=== PATIENT | male | born 1950 | race Caucasian/White ===

== ENCOUNTER 2021-02-18 18:42 | Emergency (ER) | payer OTHER, MEDICARE, SELFPAY ==
[2021-02-18 18:45] VITALS: BP 110/66; PULSE 96; RESP 18; TEMP 37.4; O2SAT 95; BMI 22.1
[2021-02-18 18:47] VITALS: BP 110/66; PULSE 96; RESP 18; TEMP 37.4; O2SAT 95
--- NOTE | 2021-02-18 19:05 | RAD_ITS ---
INDICATION: Injury/Pain EXAMINATION/TECHNIQUE: X-RAY - RIGHT XR Ankle Min 3 Views COMPARISON: None. FINDINGS: Acute nondisplaced fracture of the lateral malleolus. The ankle mortise is symmetric. No blastic or lytic lesions. No degenerative changes are seen. Soft tissue swelling of the ankle. RAD/Ankle min 3 Views IMPRESSION: Acute nondisplaced fracture of the lateral malleolus (IRVIN type C). Electronically Signed: Ulices Regan MD at 19:40 EDT Tel , Service support ,
--- NOTE | 2021-02-18 19:47 | EDS_ITS ---
HPI History of Present Illness Chief Complaint: Lower Extremity Injury Informant: patient Occured/Mechanism Mechanism/Context: Yes fall Onset/Context/Timing Onset: Today Context: Sudden Onset Timing: Continuous Quality of Pain: Sharp and Dull Location: Right ankle Worsened by: Ambulation Relieved by: Nothing Associated Symptoms Associated Symptoms: Negative for Parasthesia, Weakness and Loss of Funtion Narrative Narrative: Patient presents with right ankle injury that occurred today. Patient states he twisted his right ankle and fell. Patient states he has been having increasing pain and swelling to his right ankle over the past few hours. Patient describes the pain as constant dull but sharp at times. Patient states the pain is worse with ambulation. Patient denies any paresthesias or weakness. Patient denies any head injury or loss of consciousness. Patient denies any other injuries. [facility] Medical History (Updated 02/18/21 @ 19:[address] Nathan Gabriel DO) Diabetes GERD (gastroesophageal reflux disease) Hypercholesterolemia Hypertension Home Medications albuterol sulfate [Proventil Hfa] 6.7 g IH 4X/DAY PRN 01/04/17 [History Last Taken Unknown] atorvastatin 10 mg PO QHS 01/04/17 [History Last Taken Unknown] budesonide-formoterol [Symbicort 160-4.5 Mcg Inhaler] 6 g IH BID 01/04/17 [History Last Taken Unknown] gabapentin 300 mg PO TIDCM 01/04/17 [History Last Taken Unknown] hydrocodone-acetaminophen 1 tab PO Q6H PRN PRN #16 tablet 01/04/17 [Rx Last Taken Unknown] lisinopril 5 mg PO DAILY 01/04/17 [History Last Taken Unknown] metformin 500 mg PO QHS 01/04/17 [History Last Taken Unknown] omeprazole 20 mg PO BID 01/04/17 [History Last Taken Unknown] hydrocodone-acetaminophen 1 tab PO Q6H PRN PRN 3 Days #10 tablet 02/18/21 [Rx Last Taken Unknown] Allergy/AdvReac Type Severity Reaction Status Date / Time No Known Allergies Allergy Verified 01/04/17 18:55 Surgical History (Updated 02/18/21 @ 19:[address] Nathan Gabriel DO) History of back surgery Social History Smoking Status: Former smoker ROS ROS ED Constitutional Constitutional ED: Denies chills or fever(s) Eyes Eyes: Denies blurry vision or change in vision ENT ENT ED: Denies rhinorrhea or sore throat Cardiovascular Cardiovascular: Denies chest pain or palpitations Respiratory/Chest Respiratory/Chest: Denies cough or dyspnea Gastrointestinal Gastrointestinal: Denies nausea or vomiting Genitourinary Genitourinary ED: Denies dysuria or hematuria Musculoskeletal Musculoskeletal: Denies back pain or neck pain Integumentary Denies abscess or rash Neurologic Neurologic: Denies headache(s) or weakness Allergic/Immunologic Allergic/Immunologic ED: Denies mouth swelling or urticaria EXAM Physical Exam Const Vital Signs: 02/18/21 18:45 02/18/21 18:47 Temperature 99.3 F H 99.3 F H Temperature Source Temporal Temporal Pulse Rate 96 96 Respiratory Rate 18 18 Blood Pressure 110/66 110/66 Blood Pressure Mean 80 80 Pulse Ox 95 95 Oxygen Delivery Method Room Air Room Air Positive well nourished and well developed General Appearance ED: well developed HEENT Reports moist mucous membranes Neck full ROM and supple Extremity Right Lower Extremity: ankle joint inspection (There is tenderness, edema, and ecchymosis over the lateral aspect of the right ankle. There is no deformity.), palpation (There is tenderness to palpation over the lateral malleolus.), ROM (Range of motion was slightly limited in all motions of the right ankle secondary to pain.) and neurovascular exam (Pedal pulses are equal bilateral. Capillary refill is less than 2 seconds in all digits. There are no sensory deficits noted.) Neuro oriented x3, CN's II-XII intact bilaterally, moves all extremities and no sensory deficits noted Sensorium / Orientation: alert Motor Exam: strength 5/5 throughout Psych mental status grossly normal Skin Skin Narrative: There is a superficial abrasion over the posterior aspect of the left elbow. There is no active bleeding noted. There is no bony crepitance or tenderness noted. There is no erythema or warmth noted. MDM MDM MDM Narrative Medical decision making narrative: X-rays of the right ankle were obtained. There are 3 views. On my interpretation, there is a nondisplaced fracture of the tip of the distal fibula. There is no dislocation. There is some mild soft tissue swelling. Radiologist also interpreted the x-rays and agrees. Patient was given a walking boot. Patient declined any analgesics at this time. Patient was given a prescription for [place]. Patient was instructed to ice and elevate the right ankle. Patient was instructed to follow-up with his primary care physician in 5 to 7 days. Patient understood and was agreeable with the plan. All questions were answered. Radiography Diagnostic Testing: Radiology Impression Ankle X-Ray 02/18/21 19:05 IMPRESSION: Acute nondisplaced fracture of the lateral malleolus (IRVIN type C). Electronically Signed: Ulices Regan MD at 19:40 EDT Tel , Service support , Discharge Plan Triage Chief Complaint: Lower Extremity Injury ED Provider: Nathan Gabriel Dx/Rx/DC Orders Clinical Impression: Closed fracture of right distal fibula Instructions: ED Ankle Fracture, Distal Fibula Prescriptions: New hydrocodone-acetaminophen [hydrocodone-acetaminophen] 1 TABLET tablet 1 tab PO Q6H PRN PRN (Reason: Pain) 3 Days Qty: 10 RF: 0 No Action atorvastatin 10 MG tablet 10 mg PO QHS RF: 0 gabapentin 300 MG capsule 300 mg PO TIDCM RF: 0 omeprazole 20 MG capsule 20 mg PO BID RF: 0 lisinopril 5 MG tablet 5 mg PO DAILY RF: 0 albuterol sulfate [Proventil HFA] 6.7 GM HFA aerosol inhaler 6.7 g IH 4X/DAY PRN (Reason: Sob &/Or Wheezing) RF: 0 metformin 500 MG tablet,ER rosa.retention 24 hr 500 mg PO QHS RF: 0 budesonide-formoterol [Symbicort] 6 GM HFA aerosol inhaler 6 g IH BID RF: 0 hydrocodone-acetaminophen 1 TABLET tablet 1 tab PO Q6H PRN PRN (Reason: Pain) Qty: 16 RF: 0 [facility] - 3-5 Days Disposition Disposition: Home, self care
== END 2021-02-18 20:02 | disposition home or self-care (01) ==
PROVIDERS: Emergency Provider Emergency Medicine
DX: S82.831A Other fracture of upper and lower end of right fibula, initial encounter for closed fracture (principal); X58.XXXA Exposure to other specified factors, initial encounter; Z87.891 Personal history of nicotine dependence
CPT/HCPCS: 73610; 99283

== ENCOUNTER 2021-04-10 14:23 | Inpatient (IN) | payer OTHER, MEDICARE, SELFPAY ==
[2021-04-10] VITALS (17 sets, daily range): BP systolic 118–146; BP diastolic 61–86; PULSE 93–129; RESP 18–40; TEMP 36.6–38.8; O2SAT 87–96; BMI 22.5; BMI 21.4
--- NOTE | 2021-04-10 14:50 | EKG12_ITS ---
Test Reason : Blood Pressure : / mmHG Vent. Rate : 101 BPM Atrial Rate : 101 BPM P-R Int : 128 ms QRS Dur : 084 ms QT Int : 334 ms P-R-T Axes : 063 048 044 degrees QTc Int : 433 ms Sinus tachycardia Otherwise normal ECG Confirmed by LILLY VERA, TERI ([id number]), editor greeting card ELISHA MARIE ([id number]) on 04/14/2021 9:30:43 AM Referred By: DWAYNE Confirmed By:TERI CARR MD
--- NOTE | 2021-04-10 14:57 | RAD_ITS ---
STUDY: X-RAY CHEST REASON FOR EXAM: Male, 70 years old. DIZZINESS X3 DAYS ALSO HAVING A FEVER, INCREASED SOB, AND COUGH. PULSE OX 77% ON ROOM AIR ON EMS ARRIVAL. TECHNIQUE: AP COMPARISON: None. FINDINGS: EKG leads project over the chest. Airspace consolidation in the right lung base. There is no demonstrated pleural abnormality. Normal size heart. Normal mediastinum and dov. Normal visualized pulmonary arteries. There is atherosclerotic calcification of the aortic arch with tortuosity. No acute bony process. There is no demonstrated abnormality of the visualized soft tissue structures of the upper abdomen. RAD/Chest 1 View (Portable) IMPRESSION: Right lower lobe pneumonia. Electronically Signed: Jamal Martinez MD ([place]) at 15:20 EDT , Service support ,
[2021-04-10 15:02] LABS: Absolute Lymphocyte Count 0.23 X10^3/uL (0.83-4.51); Absolute Neutrophil Count 9.8 X10^3/uL (2.0-7.7); Basophil# 0.02 X10^3/uL; Basophil% 0.2 % (0-1); Hematocrit 37.7 % (40-54); Hemoglobin 12.3 g/dL (13.0-16.5); Lymphocyte # 0.23 X10^3/ul (0.83-4.51); Lymphocyte % 2.1 % (19-41); Mean Corp Hgb Conc 32.6 g/dL (32-36); Mean Platelet Vol. 11.6 fl (6.2-12.0); Monocyte# 0.56 X10^3/uL; Monocyte% 5.2 % (0-10); NRBC Flagged by Analyzer 0 % (0-5); Neutrophil # 9.83 X10^3/uL (2.7-7.7); Neutrophil % 91.8 % (47-70); POSITIVE DIFFERENTIAL YES; Platelet Count 213 K/mm3 (150-450); RBC Distribution Width CV 14.6 % (11.6-14.6); RBC Distribution Width SD 49.6 fl (35.1-43.9); White Blood Count 10.7 K/mm3 (4.4-11.0)
[2021-04-10 15:03] LABS: Differential Indicated SCAN CRITERIA MET
[2021-04-10 15:08] LABS: International Normalized Ratio 1.4; Prothrombin Time (Protime)PT. 16.9 SECONDS (11.7-14.9)
[2021-04-10 15:09] LABS: Partial Thromboplast Time 36.6 Seconds (24.1-36.2)
--- NOTE | 2021-04-10 15:13 | ED.RN ---
pt refused PRC covid test. Dr melendez
[2021-04-10 15:14] LABS: ALB/GLOB Ratio 0.7 RATIO (0.9-2.4); AST(SGOT) 41 U/L (15-37); Alanine Aminotransfer ALT/SGPT 21 U/L (16-61); Alkaline Phosphatase 74 U/L (45-117); Anion Gap 9 (5-15); BUN 33 mg/dL (7-18); Calcium,Total 8.6 mg/dL (8.5-10.1); Chloride 95 mmol/L (98-107); Creatinine, Serum 1.32 mg/dL (0.70-1.30); EST Glomerular Filtration Rate 57 mL/min (>60); Est Glom Filt Rate - Afr Amer 69 mL/min (>60); Estimated Creatinine Clearance 50.28 ml/min; Globulin 4.4 g/dL (2.2-4.2); Glucose 256 mg/dL (74-106); Potassium 4.6 mmol/L (3.5-5.1); Protein, Total 7.4 g/dL (6.4-8.2); Sodium Level 127 mmol/L (136-145)
[2021-04-10 15:21] LABS: Differential Comment SCANNED; Platelet Estimate ADEQUATE (ADEQ)
[2021-04-10 15:24] LABS: Lactic Acid 1.5 mmol/L (0.4-1.9)
--- NOTE | 2021-04-10 15:32 | EX.ED.DYSGE1 ---
HPI History of Present Illness Chief Complaint: Fever Narrative Narrative: 70-year-old male with history of COPD, diabetes, GERD, hypertension, hyperlipidemia presenting with shortness of breath and cough. Patient states he has had this for about 3 to 4 days. He states he was unsure if he had a fever at home and did not check. Patient complains of myalgias and chills. Patient also states he lost his sense of taste. His smell is normal. Patient denies chest pain. He feels like his cough is chronic. He has no significant new short of breath that he states. Patient states he is a longtime smoker and quit for years however he took up smoking on Father's Day of 2019 after his . He states he smoked a pack a day. [facility] Medical History Diabetes GERD (gastroesophageal reflux disease) Hypercholesterolemia Hypertension Home Medications albuterol sulfate [Proventil Hfa] 6.7 g IH 4X/DAY PRN 01/04/17 [History Last Taken Unknown] atorvastatin 10 mg PO QHS 01/04/17 [History Last Taken Unknown] budesonide-formoterol [Symbicort 160-4.5 Mcg Inhaler] 6 g IH BID 01/04/17 [History Last Taken Unknown] gabapentin 300 mg PO TIDCM 01/04/17 [History Last Taken Unknown] hydrocodone-acetaminophen 1 tab PO Q6H PRN PRN #16 tablet 01/04/17 [Rx Last Taken Unknown] lisinopril 5 mg PO DAILY 01/04/17 [History Last Taken Unknown] metformin 500 mg PO QHS 01/04/17 [History Last Taken Unknown] omeprazole 20 mg PO BID 01/04/17 [History Last Taken Unknown] hydrocodone-acetaminophen 1 tab PO Q6H PRN PRN 3 Days #10 tablet 02/18/21 [Rx Last Taken Unknown] Allergy/AdvReac Type Severity Reaction Status Date / Time No Known Allergies Allergy Verified 01/04/17 18:55 Surgical History History of back surgery Social History Smoking Status: Current every day smoker tobacco type: cigarettes ROS ROS ED Constitutional Constitutional ED: Reports chills and fever(s); Denies sweats Eyes Eyes: Reports blurry vision and diplopia ENT ENT ED: Reports rhinorrhea, sore throat and other Details: Loss of sense of taste Cardiovascular Cardiovascular: Denies chest pain Respiratory/Chest Respiratory/Chest: Reports cough, dyspnea and dyspnea on exertion Gastrointestinal Gastrointestinal: Denies abdominal pain, diarrhea, nausea or vomiting Genitourinary Genitourinary ED: Denies dysuria Musculoskeletal Musculoskeletal: Reports myalgias; Denies arthralgias, back pain or neck pain Integumentary Denies abscess or rash Neurologic Neurologic: Reports headache(s); Denies paresthesias Psychiatric Psychiatric: Reports anxiety and depression EXAM Physical Exam Const Vital Signs: 04/10/21 14:24 04/10/21 14:29 04/10/21 14:33 Temperature 101.9 F H 101.9 F H Temperature Source Oral Oral Pulse Rate 109 H 109 H Respiratory Rate 24 H 28 H Respiratory Effort Short of Breath Respiratory Pattern Tachypnea Blood Pressure 145/68 H 145/68 H Blood Pressure Mean 93 93 Pulse Ox 89 93 Oxygen Delivery Method Room Air Nasal Cannula Oxygen Flow Rate (L/min) 3 04/10/21 14:50 04/10/21 15:29 04/10/21 15:54 Temperature 98 F 98 F Temperature Source Temporal Temporal Pulse Rate 93 96 93 Respiratory Rate 20 H 20 H 18 Respiratory Effort Respiratory Pattern Blood Pressure 146/74 H 129/68 H Blood Pressure Mean 98 88 Pulse Ox 95 95 94 Oxygen Delivery Method Nasal Cannula Nasal Cannula Nasal Cannula Oxygen Flow Rate (L/min) 1.5 2 04/10/21 15:57 04/10/21 17:00 04/10/21 17:02 Temperature 99 F 99 F Temperature Source Temporal Temporal Pulse Rate 94 102 H 102 H Respiratory Rate 22 H 20 H 20 H Respiratory Effort Respiratory Pattern Blood Pressure 134/74 H 123/86 H 139/61 H Blood Pressure Mean 94 98 87 Pulse Ox 96 95 95 Oxygen Delivery Method Nasal Cannula Nasal Cannula Nasal Cannula Oxygen Flow Rate (L/min) 04/10/21 18:14 04/10/21 18:16 04/10/21 18:29 Temperature 99 F 99 F 98.2 F Temperature Source Temporal Temporal Oral Pulse Rate 95 Respiratory Rate 20 H Respiratory Effort Respiratory Pattern Blood Pressure 144/85 H Blood Pressure Mean 104 Pulse Ox 94 Oxygen Delivery Method Nasal Cannula Oxygen Flow Rate (L/min) 08/07/21 19:00 Temperature 98.2 F Temperature Source Oral Pulse Rate 95 Respiratory Rate 20 H Respiratory Effort Respiratory Pattern Blood Pressure 118/71 Blood Pressure Mean 86 Pulse Ox 94 Oxygen Delivery Method Nasal Cannula Oxygen Flow Rate (L/min) 2 Positive well nourished General Appearance ED: NAD PETROS Reports dry mucous membranes Negative for trauma Mouth ED: Yes dry mucous membranes Mouth: dry mucous membranes Eyes PERRL and EOMs intact bilaterally General Eye ED: Negative for pale conjunctiva or scleral icterus Chest Wall palpation of chest normal Resp Auscultation: wheezes expiratory wheezes and scattered wheezes and diminished lung sounds bilateral GI normal to inspection, nondistended, normoactive bowel sounds Extremity normal to inspection General Extremety ED: Negative for edema or tenderness General Extremity: Negative for edema Neuro oriented x3, CN's II-XII intact bilaterally and no sensory deficits noted Sensorium / Orientation: alert Motor Exam: strength 5/5 throughout Psych mental status grossly normal Skin no rashes or lesions noted and no wounds MDM MDM MDM Narrative Medical decision making narrative: 70-year-old male with history of COPD and current smoker of 1 pack of cigarettes per day presenting with hypoxia as he is found by EMS to be in the 70s on room air. Patient states that he does not usually wear oxygen at home. He does state that he has had a cough, myalgias, chills, loss of taste for about 4 days. He denies known sick contacts. Patient does not endorse a fever from home but does arrive febrile at 101.9. Given that patient is tachypneic and tachycardic as well as hypoxic sepsis work-up was initiated. Patient does refuse COVID-19 testing and has not had COVID-19 that he knows of nor has he had Covid vaccines. He states he just does not want this. His EKG performed on arrival shows a sinus rhythm with a ventricular to 101 bpm without signs of ST elevation or depression on my interpretation. Chest x-ray on my interpretation shows a right lower lobe infiltrate and the radiologist does agree. Patient's CBC shows a white blood cell count of 10.7, hemoglobin 12.3, -37.7, platelets 213. Patient is lymphopenic. PT slightly long 69.9,inr1.4, APPT 36.6. CMP shows that his AST is slightly elevated as well as his globulin however his other LFTs are within normal limits. Creatinine is slightly elevated 1.32 from a baseline of 1.16. Sodium is 127, potassium is normal. Lactic acid 1.5. Patient currently requiring 2 L of oxygen via nasal cannula to maintain sats in the low 90s. Patient refuses Covid testing even after I explained to him that it would help us determine whether we can get him home on oxygen or whether we needed to admit him for oxygen and further treatment of COPD exacerbation. Patient states he is adamant about not being tested for COVID-19. After discussion with the patient again he was amenable to testing for Covid. His Covid swab was negative. Troponin was negative. Patient had an elevated D-dimer and did have a CTA performed which showed no evidence of PE or dissection. It does show right lower lobe pneumonia. Given that the patient is hypoxic I cannot send him home without oxygen. Patient will need to be admitted for IV antibiotics and O2 set up for home. Patient is amenable to this. Impression: 1. Right lower lobe pneumonia 2. Hypoxic respiratory failure Lab Data Labs: Laboratory Results - last 24 hr 04/10/21 04/10/21 04/10/21 14:03 14:03 14:03 WBC 10.7 RBC 4.10 L Hgb 12.3 L Hct 37.7 L MCV 92.0 MCH 30.0 MCHC 32.6 RDW Std Deviation 49.6 H RDW Coeff of [place] 14.6 Plt Count 213 MPV 11.6 Immature Gran % (Auto) 0.700 Neut % (Auto) 91.8 H Lymph % (Auto) 2.1 L [place] % (Auto) 5.2 Eos % (Auto) 0.0 Baso % (Auto) 0.2 Absolute Neuts (auto) 9.8 H Absolute Lymphs (auto) 0.23 L Nucleated RBC % 0 Differential Comment SCANNED Platelet Estimate ADEQUATE PT 16.9 H INR 1.4 APTT 36.6 H D-Dimer Quant (PE/DVT) Sodium 127 L Potassium 4.6 Chloride 95 L Carbon Dioxide 23.0 Anion Gap 9 BUN 33 H Creatinine 1.32 H Estim Creat Clear Calc 50.28 Est GFR (MDRD) Af Amer 69 Est GFR (MDRD) Non-Af 57 L BUN/Creatinine Ratio 25.0 H Glucose 256 H Lactic Acid Calcium 8.6 Total Bilirubin 1.00 AST 41 H ALT 21 Alkaline Phosphatase 74 Troponin I High Sens Total Protein 7.4 Albumin 3.0 L Globulin 4.4 H Albumin/Globulin Ratio 0.7 L COVID-19 (ANJUM) 04/10/21 04/10/21 04/10/21 14:03 14:30 16:30 WBC RBC Hgb Hct MCV MCH MCHC RDW Std Deviation RDW Coeff of [place] Plt Count MPV Immature Gran % (Auto) Neut % (Auto) Lymph % (Auto) [place] % (Auto) Eos % (Auto) Baso % (Auto) Absolute Neuts (auto) Absolute Lymphs (auto) Nucleated RBC % Differential Comment Platelet Estimate PT INR APTT D-Dimer Quant (PE/DVT) Sodium Potassium Chloride Carbon Dioxide Anion Gap BUN Creatinine Estim Creat Clear Calc Est GFR (MDRD) Af Amer Est GFR (MDRD) Non-Af BUN/Creatinine Ratio Glucose Lactic Acid 1.5 Calcium Total Bilirubin AST ALT Alkaline Phosphatase Troponin I High Sens 39.5 Total Protein Albumin Globulin Albumin/Globulin Ratio COVID-19 (ANJUM) Negative 04/10/21 16:45 WBC RBC Hgb Hct MCV MCH MCHC RDW Std Deviation RDW Coeff of [place] Plt Count MPV Immature Gran % (Auto) Neut % (Auto) Lymph % (Auto) [place] % (Auto) Eos % (Auto) Baso % (Auto) Absolute Neuts (auto) Absolute Lymphs (auto) Nucleated RBC % Differential Comment Platelet Estimate PT INR APTT D-Dimer Quant (PE/DVT) 2.36 H* Sodium Potassium Chloride Carbon Dioxide Anion Gap BUN Creatinine Estim Creat Clear Calc Est GFR (MDRD) Af Amer Est GFR (MDRD) Non-Af BUN/Creatinine Ratio Glucose Lactic Acid Calcium Total Bilirubin AST ALT Alkaline Phosphatase Troponin I High Sens Total Protein Albumin Globulin Albumin/Globulin Ratio COVID-19 (NAJUM) Radiography Diagnostic Testing: Radiology Impression Chest X-Ray 04/10/21 14:57 IMPRESSION: Right lower lobe pneumonia. Electronically Signed: Jamal Martinez MD ([place]) at 15:20 EDT , Service support , Chest CTA 04/10/21 17:20 IMPRESSION: 1. No evidence of pulmonary embolus. 2. Right lower lobe consolidation compatible with pneumonia. Individualized dose optimization techniques were used for this CT. at 1824 Reported and signed by: Antoine Yin MD Electronically Signed: Antoine Yin MD at 18:23 EDT Tel , Service support , Discharge Plan Disposition Disposition: Acute Care Hospital [facility] Discharge Date/Time: 04/10/21 19:35
[2021-04-10] MEDS: dexAMETHasone 10 MG/ML Vial 6 MG IV (15:50)
[2021-04-10] MEDS: Ipratropium/Albuterol Sulfate 3 ML AMPUL.NEB INHALATION (15:53)
[2021-04-10] MEDS: Albuterol 2.5 MG/3 ML VIAL.NEB. INHALATION ×2 (15:57→21:19)
[2021-04-10 17:18] LABS: D-Dimer Quantitative (DVT/PE) 2.36 FEU/ug/m (0.27-0.49)
--- NOTE | 2021-04-10 17:20 | CT_ITS ---
EXAM: CT ANGIOGRAPHY CHEST WITHOUT AND WITH INTRAVENOUS CONTRAST : 1950 CLINICAL INDICATION: hypoxia TECHNIQUE: Helically acquired angiography images were obtained of the chest without and with intravenous contrast. This CT exam was performed using one or more of the following dose reduction techniques: automated exposure control, adjustment of the mA and/or kV according to patient size, and/or use of iterative reconstruction technique. This report was created using [employer] report generation technology. MIP reconstructed images were created and reviewed. CONTRAST: IV 100mL [id number] COMPARISON: None. FINDINGS: PULMONARY ARTERIES: Unremarkable. Normal in caliber. No evidence of pulmonary embolism. AORTA: Unremarkable. Normal in caliber. No evidence of dissection. GREAT VESSELS OF AORTIC ARCH: Unremarkable. Normal in caliber. No evidence of dissection. LUNGS AND PLEURAL SPACES: There is consolidation in the right lower lobe compatible with pneumonia. No mass. No pleural effusion or thickening. HEART: Unremarkable. Heart size is normal. No pericardial effusion. No signs of right heart strain. MEDIASTINUM: Unremarkable. No mediastinal or hilar adenopathy. Esophagus is unremarkable. No hiatal hernia. THYROID: Unremarkable. No thyroid lesions. BONES/JOINTS: Unremarkable. No suspicious lytic or blastic abnormality. LYMPH NODES: There is soft tissue in the right hilum compatible with adenopathy. CT/CTA Chest W/WO Contrast IMPRESSION: 1. No evidence of pulmonary embolus. 2. Right lower lobe consolidation compatible with pneumonia. Individualized dose optimization techniques were used for this CT. at 1824 Reported and signed by: Antoine Yin MD Electronically Signed: Antoine Yin MD at 18:23 EDT Tel , Service support ,
[2021-04-10 17:53] LABS: Probe Check PASS; Specimen Processing Control PASS
--- NOTE | 2021-04-10 18:30 | ED.RN ---
pt is aware that urine is needed.
--- NOTE | 2021-04-10 18:49 | NURSING ---
[facility] AND [facility] SAID ACCEPTANCE IS CASE BY CASE AND ASKED ME TO FAX OVER OUR NOTES. I DID TO [phone] AND WAITING TO HEAR BACK.
[2021-04-10] MEDS: Ceftriaxone 1 GM/50 ML BAG IV (18:59)
--- NOTE | 2021-04-10 19:32 | CM.ED ---
Addendum entered by Adriana Spencer 04/10/21 20:46: SW went to [facility] to speak to patient. SW asked about patient's dog as he had talked to this scientific technical writer about the dog to this scientific technical writer and RN. Patient said that the dog will be ok. SW expressed concerns about the dog and patient again voiced that dog is ok. SW asked if there was anyone that this scientific technical writer could call to ensure that the dog was safe and he said no.. I don't want to cause any more conflict. SW called RN Kimmy and asked that she attempt to talk to patient about the dog and attempt to see if patient will provide name of someone who could help with dog or the status of the dog. RN agreed. Plan: To be determined. Original Note: CAIN Note: Referral Source: mergers and acquisitions associate Reason: Patient's 7 month ago and is grieving. Patient declined covid test. Reports he wants to go home with his dog SW met with patient. Patient talked extensively about his and how she as a result of a fall and broken neck. Patient reports he doesn't understand why his of 30+ years was transferred to [facility] for treatment. Patient said that then went to [facility] and he attempted to visit her but due to COVID it was limited. Patient got tearful when discussing his and her passing. SW provided emotional support. CAIN advised patient to consider talking to [facility] unit control worker for support and SW asked if he needed their contact number and he declined but said that he knew where the offices were in [facility]. SW encouraged patient to obtain covid test and he agreed. Patient is very concerned about his dog. Plan: To be determined. Emotional support provided Adriana SEPULVEDA
[2021-04-10 19:34] LABS: Troponin-I HS 39.5 pg/mL (3.0-78.5)
--- NOTE | 2021-04-10 19:35 | PCM.HP.STD ---
HPI - General General Date of Admission: 04/10/21 HPI Narrative YULIYA GALARZA, is a 70 M with a history of COPD who presents feeling unwell, fever and a cough. Denies any shortness of breath or chest pain per se. Denies any wheezing. Appetite and oral intake has been poor. 15 pound weight loss per patient unable to tell me over how long. Denies any sick contacts or any recent travel. [facility] Medical History Diabetes GERD (gastroesophageal reflux disease) Hypercholesterolemia Hypertension Home Medications albuterol sulfate [Proventil Hfa] 6.7 g IH 4X/DAY PRN 01/04/17 [History Last Taken Unknown] atorvastatin 10 mg PO QHS 01/04/17 [History Last Taken Unknown] budesonide-formoterol [Symbicort 160-4.5 Mcg Inhaler] 6 g IH BID 01/04/17 [History Last Taken Unknown] gabapentin 300 mg PO TIDCM 01/04/17 [History Last Taken Unknown] hydrocodone-acetaminophen 1 tab PO Q6H PRN PRN #16 tablet 01/04/17 [Rx Last Taken Unknown] lisinopril 5 mg PO DAILY 01/04/17 [History Last Taken Unknown] metformin 500 mg PO QHS 01/04/17 [History Last Taken Unknown] omeprazole 20 mg PO BID 01/04/17 [History Last Taken Unknown] hydrocodone-acetaminophen 1 tab PO Q6H PRN PRN 3 Days #10 tablet 02/18/21 [Rx Last Taken Unknown] Allergy/AdvReac Type Severity Reaction Status Date / Time No Known Allergies Allergy Verified 01/04/17 18:55 Surgical History History of back surgery Social History Smoking Status: Current every day smoker tobacco type: cigarettes ROS ROS Narrative Denies any abdominal pain nausea vomiting. Denies any lower extremity swelling. All other systems reviewed and essentially negative. Vital Signs Vital Signs Vital Signs: 04/10/21 14:24 04/10/21 14:29 04/10/21 14:33 Temperature 38.8 C H 38.8 C H Temperature Source Oral Oral Pulse Rate 109 H 109 H Respiratory Rate 24 H 28 H Respiratory Effort Short of Breath Respiratory Pattern Tachypnea Blood Pressure 145/68 H 145/68 H Blood Pressure Mean 93 93 Pulse Ox 89 93 Oxygen Delivery Method Room Air Nasal Cannula Oxygen Flow Rate (L/min) 3 04/10/21 14:50 04/10/21 15:29 04/10/21 15:54 Temperature 36.6 C 36.6 C Temperature Source Temporal Temporal Pulse Rate 93 96 93 Respiratory Rate 20 H 20 H 18 Respiratory Effort Respiratory Pattern Blood Pressure 146/74 H 129/68 H Blood Pressure Mean 98 88 Pulse Ox 95 95 94 Oxygen Delivery Method Nasal Cannula Nasal Cannula Nasal Cannula Oxygen Flow Rate (L/min) 1.5 2 04/10/21 15:57 04/10/21 17:00 04/10/21 17:02 Temperature 37.2 C 37.2 C Temperature Source Temporal Temporal Pulse Rate 94 102 H 102 H Respiratory Rate 22 H 20 H 20 H Respiratory Effort Respiratory Pattern Blood Pressure 134/74 H 123/86 H 139/61 H Blood Pressure Mean 94 98 87 Pulse Ox 96 95 95 Oxygen Delivery Method Nasal Cannula Nasal Cannula Nasal Cannula Oxygen Flow Rate (L/min) 04/10/21 18:14 04/10/21 18:16 04/10/21 18:29 Temperature 37.2 C 37.2 C 36.8 C Temperature Source Temporal Temporal Oral Pulse Rate 95 Respiratory Rate 20 H Respiratory Effort Respiratory Pattern Blood Pressure 144/85 H Blood Pressure Mean 104 Pulse Ox 94 Oxygen Delivery Method Nasal Cannula Oxygen Flow Rate (L/min) 04/10/21 19:00 Temperature 36.8 C Temperature Source Oral Pulse Rate 95 Respiratory Rate 20 H Respiratory Effort Respiratory Pattern Blood Pressure 118/71 Blood Pressure Mean 86 Pulse Ox 94 Oxygen Delivery Method Nasal Cannula Oxygen Flow Rate (L/min) 2 Weight Weight: 67.3 kg Body Mass Index (BMI) 22.5 Physical Exam Narrative General. Middle-aged man, appears older than stated age, chronically ill-appearing, slightly cachectic. Mildly ill-appearing. HEENT. Oral mucosa slightly dry. Mucosae are pink. Neck. Neck is supple. Heart first and second heart sounds heard no murmurs. Lungs. Coarse crackles and harsh breath sounds and transmitted sounds in the right lung base. Abdomen. Flat/scaphoid. Nontender. No organomegaly. No palpable masses. Extremities. No pedal edema. 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 Conscious and alert. Oriented x3. Cranial nerves II through XII grossly intact. Gait not tested. All other organ systems examined essentially negative. Results Lab / Micro Data Result Diagrams: 04/10/21 14:03 04/10/21 14:03 Labs: Laboratory Results - last 24 hr 04/10/21 14:03: WBC 10.7, RBC 4.10 L, Hgb 12.3 L, Hct 37.7 L, MCV 92.0, MCH 30.0, MCHC 32.6, RDW Std Deviation 49.6 H, RDW Coeff of [place] 14.6, Plt Count 213, MPV 11.6, Immature Gran % (Auto) 0.700, Neut % (Auto) 91.8 H, Lymph % (Auto) 2.1 L, [place] % (Auto) 5.2, Eos % (Auto) 0.0, Baso % (Auto) 0.2, Absolute Neuts (auto) 9.8 H, Absolute Lymphs (auto) 0.23 L, Nucleated RBC % 0, Differential Comment SCANNED, Platelet Estimate ADEQUATE 04/10/21 14:03: PT 16.9 H, INR 1.4, APTT 36.6 H 04/10/21 14:03: Sodium 127 L, Potassium 4.6, Chloride 95 L, Carbon Dioxide 23.0, Anion Gap 9, BUN 33 H, Creatinine 1.32 H, Estim Creat Clear Calc 50.28, Est GFR (MDRD) Af Amer 69, Est GFR (MDRD) Non-Af 57 L, BUN/Creatinine Ratio 25.0 H, Glucose 256 H, Calcium 8.6, Total Bilirubin 1.00, AST 41 H, ALT 21, Alkaline Phosphatase 74, Total Protein 7.4, Albumin 3.0 L, Globulin 4.4 H, Albumin/Globulin Ratio 0.7 L 04/10/21 14:03: Troponin I High Sens 39.5 04/10/21 14:30: Lactic Acid 1.5 04/10/21 16:30: COVID-19 (ANJUM) Negative 04/10/21 16:45: D-Dimer Quant (PE/DVT) 2.36 H* Radiology Impression Chest X-Ray 04/10/21 14:57 IMPRESSION: Right lower lobe pneumonia. Electronically Signed: Jamal Martinez MD ([place]) at 15:20 EDT , Service support , Chest CTA 04/10/21 17:20 IMPRESSION: 1. No evidence of pulmonary embolus. 2. Right lower lobe consolidation compatible with pneumonia. Individualized dose optimization techniques were used for this CT. at 1824 Reported and signed by: Antoine Yin MD Electronically Signed: Antoine Yin MD at 18:23 EDT Tel , Service support , Assessment & Plan Assessment/Plan (1) Community acquired bacterial pneumonia: PLAN: Continue on empiric IV antibiotics. Supportive care. (2) Acute respiratory failure with hypoxia: PLAN: Secondary to #1 above. Supplemental oxygen as needed. (3) COPD (chronic obstructive pulmonary disease): PLAN: Stable and not in exacerbation. Continue ICS and LABA. DuoNebs as needed. Charges/Coding Visit Charges Inpatient E&M: 05336 Init Hosp L3
[2021-04-10 20:53] LABS: Bacteria 0 SEEN /hpf (None Seen); Mucous, Urine 0 SEEN /hpf (<or=2+); White Blood Cells 0 SEEN /hpf (0-5)
[2021-04-10] MEDS: Pantoprazole Sodium 20 MG Tablet PO (20:56)
[2021-04-10] MEDS: guaiFENesin 600 MG Tablet PO (20:56)
[2021-04-10] MEDS: Atorvastatin Calcium 10 MG Tablet PO (20:56)
[2021-04-10] MEDS: Glucerna Shake 120 ML LIQUID PO (20:58)
[2021-04-10] MEDS: Insulin Lispro 100 UNIT/ML INSULN.PEN SC (20:58)
[2021-04-10 21:08] LABS: Color, Urine Yellow (Yellow); Glucose, Dipstick 1000 mg/dl (Normal); Ketone-Dipstick 50 mg/dl (Negative); Leukocyte Esterase-Dipstick Negative /ul (Negative); Nitrite-Dipstick Negative (Negative); Occult Blood-Urine 150 /ul (Negative); Protein-Dipstick 100 mg/dl (Negative); Specific Gravity, Urine 1.015 (1.002-1.030); Urine Bilirubin Dipstick Negative (Negative); Urine Clarity Clear (Clear); Urine Urobilinogen Normal (Normal)
[2021-04-10 21:18] LABS: Osmolality, Urine 699 mOsm/KG
[2021-04-10] MEDS: Budesonide Respules 0.5 MG/2 ML AMPUL.NEB. INHALATION (21:19)
[2021-04-10] MEDS: levoFLOXacin IV 750 MG/150 ML BAG 100 MG IV (21:40)
[2021-04-10 21:46] LABS: Fine Granular Cast- Urine 0-5 SEEN /lpf (0-5); Hyaline Cast 0-5 SEEN /lpf (0-5)
[2021-04-10 21:49] LABS: Squamous Epithelial Cells - UA 0-5 SEEN /hpf (0-5)
[2021-04-10 21:51] LABS: Red Blood Cells-Urine 0-5 SEEN /hpf (0-5)
[2021-04-11] VITALS (21 sets, daily range): BP systolic 107–143; BP diastolic 49–67; PULSE 80–121; RESP 18–40; TEMP 36.9–39.5; O2SAT 92–97
[2021-04-11 00:10] LABS: Bedside Glucose 391 mg/dL (70-110)
[2021-04-11 00:25] LABS: Allen Test Positive; Base Excess -6 mmol/L (-2 to +2); Bicarbonate 17.5 mmol/L (22-26); Blood Gas Specimen Type ART; O2 Delivery Device Cannula; PO2 60 mmHG (75-100); SITE R Radial; SO2 93 % (95-99); Total Carbon Dioxide 18 mmol/L; pCO2 22.3 mmHg (35-45)
--- NOTE | 2021-04-11 00:26 | RAD_ITS ---
STUDY: X-RAY CHEST REASON FOR EXAM: Male, 70 years old. Increasing shortness of breath. TECHNIQUE: Single AP portable view of the chest. COMPARISON: April 10, 2021. FINDINGS: Increasing right mid and lower lung opacity. Left basilar opacity. No effusions. No pneumothorax. Normal size heart. Normal mediastinum and dov. Normal visualized pulmonary arteries. Atherosclerotic calcification of the aortic arch. Normal visualized thoracic spine. Normal visualized ribs, clavicles, and shoulders. There is no demonstrated abnormality of the visualized soft tissue structures of the upper abdomen. RAD/Chest 1 View (Portable) IMPRESSION: Bibasilar pneumonia worse since the prior study. Electronically Signed: Praveen Joiner MD at 2:33 EDT , Service support ,
[2021-04-11] MEDS: Ipratropium/Albuterol Sulfate 3 ML AMPUL.NEB INHALATION ×5 (00:42→19:41)
[2021-04-11] MEDS: 0.9% Normal Saline 1,000 ML 100 ML IV (00:50)
[2021-04-11 00:53] LABS: BNP,B-Type NATRIURETIC PEPTIDE 91.9 pg/mL (0-100)
[2021-04-11] MEDS: Acetaminophen 325 MG Tablet 650 MG PO ×2 (01:00→10:43)
[2021-04-11] MEDS: 0.9% Saline Lock 10 ML Syringe IV (01:18)
[2021-04-11 02:10] LABS: Urine Sodium < 5 mmol/L (Not Establ.)
[2021-04-11 05:45] LABS: Absolute Lymphocyte Count 0.21 X10^3/uL (0.83-4.51); Absolute Neutrophil Count 10.2 X10^3/uL (2.0-7.7); Basophil# 0.01 X10^3/uL; Basophil% 0.1 % (0-1); Hematocrit 34.8 % (40-54); Hemoglobin 11.5 g/dL (13.0-16.5); Lymphocyte # 0.21 X10^3/ul (0.83-4.51); Lymphocyte % 1.9 % (19-41); Mean Corpuscular Hgb 29.9 pg (27.0-32.0); Mean Corpuscular Volume 90.4 fL (80-94); Mean Platelet Vol. 11.4 fl (6.2-12.0); Monocyte# 0.41 X10^3/uL; Monocyte% 3.8 % (0-10); NRBC Flagged by Analyzer 0 % (0-5); Neutrophil # 10.23 X10^3/uL (2.7-7.7); Neutrophil % 93.6 % (47-70); POSITIVE DIFFERENTIAL YES; POSITIVE MORPHOLOGY YES; Platelet Count 203 K/mm3 (150-450); RBC Distribution Width CV 14.6 % (11.6-14.6); RBC Distribution Width SD 48.5 fl (35.1-43.9); Red Blood Count 3.85 M/mm3 (4.6-6.2); White Blood Count 10.9 K/mm3 (4.4-11.0)
[2021-04-11 06:04] LABS: Differential Indicated SCAN CRITERIA MET
[2021-04-11 06:09] LABS: ALB/GLOB Ratio 0.6 RATIO (0.9-2.4); AST(SGOT) 43 U/L (15-37); Alanine Aminotransfer ALT/SGPT 22 U/L (16-61); Albumin, Serum 2.5 g/dL (3.2-5.0); Alkaline Phosphatase 61 U/L (45-117); Anion Gap 7 (5-15); BUN 24 mg/dL (7-18); BUN/Creat Ratio 21.2 RATIO (10-20); Calcium,Total 7.9 mg/dL (8.5-10.1); Chloride 97 mmol/L (98-107); Creatinine, Serum 1.13 mg/dL (0.70-1.30); EST Glomerular Filtration Rate 68 mL/min (>60); Est Glom Filt Rate - Afr Amer 83 mL/min (>60); Estimated Creatinine Clearance 54.37 ml/min; Globulin 3.9 g/dL (2.2-4.2); Glucose 250 mg/dL (74-106); Potassium 4.1 mmol/L (3.5-5.1); Protein, Total 6.4 g/dL (6.4-8.2); Sodium Level 127 mmol/L (136-145)
[2021-04-11] MEDS: Insulin Lispro 100 UNIT/ML INSULN.PEN SC ×4 (06:32→21:45)
[2021-04-11 06:41] LABS: Bedside Glucose 252 mg/dL (70-110)
[2021-04-11 07:30] LABS: Osmolality, Serum 280 mOsm/KG (280-301)
[2021-04-11] MEDS: Budesonide Respules 0.5 MG/2 ML AMPUL.NEB. INHALATION (07:30)
--- NOTE | 2021-04-11 07:49 | EX.PCM.CONCC ---
Assessment & Plan Assessment/Plan (1) Acute respiratory failure with hypoxia: (2) COPD (chronic obstructive pulmonary disease): (3) Pneumonia: PLAN: RECOMMENDATIONS: 1. Transition from inhaled to IV steroids 2. Obtain urinary antigens 3. Wean oxygen as tolerated 4. Aggressive blood sugar control. Avoid Metformin 5. BiPAP rescue if necessary with AVAPS tidal volume 400 IMPRESSIONS: 1. Acute hypoxic respiratory failure secondary to right lower lobe pneumonia in the setting of probable COPD Patient with dense consolidation of the right lower lobe, hyponatremia and rapid decompensation. Clinical suspicion for Legionella pneumonia. Antigens will be sent. This would be covered by Levaquin therapy. Patient does have an extensive smoking history and there is concern for COPD. Will transition from inhaled to IV steroids. Patient is requiring significant FiO2 to maintain saturations. Cannot exclude the need for BiPAP for rescue. If patient requires BiPAP rescue, recommend transition to intensive care unit. 2. Poorly controlled diabetes mellitus Anticipate transition to IV steroids will exacerbate condition. Patient should be kept off of Metformin given recent contrast and concern for lactic acidosis. Cannot exclude the need for basal insulin requirements. Patient is currently on sliding scale. 3. Unexplained weight loss/advanced age/poor insight Complicates care, management, recovery and prognosis.Okay to continue the majority of baseline medications. We will have to be careful with opiates in the setting of respiratory failure, but ABG shows adequate ventilation at this time. HPI Consult Data Date of Consult: 04/11/21 HPI Narrative HPI Narrative: YULIYA GALARZA is a 70 M, with past medical history listed below, who presents to [facility] on 04/10/2021 secondary to fever, progressive shortness of breath and cough. Patient states that he has been getting more sick for approximately 3 to 4 days. Patient did not check his temperature at home, but did report a subjective fever, myalgias and chills. Patient does report a loss of taste, but smell is intact. Patient denies any chest pain. In the ER, patient was febrile at 101.9 ?F, tachycardic at 109 bpm and hypoxic at 89% on room air. Blood pressure was intact and patient did require 2 L nasal cannula to maintain appropriate saturations. Heart rate did improve with control of fever. Laboratory work-up showed no leukocytosis, but a hemoglobin of 12.3, INR of 1.4 and creatinine of 1.3. Glucose was elevated at 256, but lactate and troponin were within normal limits. COVID-19 was normal. D-dimer was elevated at 2.36, so a CTA of the chest was performed showing no PE, but a right lower lobe consolidation. Since admission, patient has had significant decline in hemodynamics. Patient is requiring Airvo to maintain saturations. Patient is reporting a significant cough, but no production. Patient does not report any known Covid exposures. 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 Patient believes he does have COPD and takes Symbicort at baseline. Patient has not required supplemental oxygen previously. Patient is unclear if he has any heart disease. Patient does have some issues with pain intermittently. Patient is not a very good historian, but otherwise review of systems otherwise negative from a constitutional, HEENT, respiratory, cardiovascular, GI, genitourinary, musculoskeletal, skin, neurologic, psychiatric and hematologic system unless stated above. [facility] Medical History Diabetes GERD (gastroesophageal reflux disease) Hypercholesterolemia Hypertension Home Medications albuterol sulfate [Proventil Hfa] 6.7 g IH 4X/DAY PRN 01/04/17 [History Last Taken Unknown] atorvastatin 10 mg PO QHS 01/04/17 [History Last Taken Unknown] budesonide-formoterol [Symbicort 160-4.5 Mcg Inhaler] 6 g IH BID 01/04/17 [History Last Taken Unknown] gabapentin 300 mg PO TIDCM 01/04/17 [History Last Taken Unknown] hydrocodone-acetaminophen 1 tab PO Q6H PRN PRN #16 tablet 01/04/17 [Rx Last Taken Unknown] lisinopril 5 mg PO DAILY 01/04/17 [History Last Taken Unknown] metformin 500 mg PO QHS 01/04/17 [History Last Taken Unknown] omeprazole 20 mg PO BID 01/04/17 [History Last Taken Unknown] hydrocodone-acetaminophen 1 tab PO Q6H PRN PRN 3 Days #10 tablet 02/18/21 [Rx Last Taken Unknown] Allergy/AdvReac Type Severity Reaction Status Date / Time No Known Allergies Allergy Verified 01/04/17 18:55 Surgical History History of back surgery Social History Smoking Status: Current every day smoker tobacco type: cigarettes ROS ROS Narrative See HPI Physical Exam Const alert, oriented x3 and no apparent distress Constitutional Narrative: On Airvo therapy. General Appearance: cooperative, well developed, frail and appears older than stated age HEENT normocephalic, head/scalp atraumatic and moist oral mucous membranes Eyes PERRL and EOMs intact bilaterally Neck full ROM and no lymphadenopathy Lymph Lymphatic: lymphadenopathy Chest inspection of chest normal Resp no use of accessory muscles Effort and Inspection: tachypneic and prolonged expiratory phase Auscultation: clear to auscultation bilaterally, rhonchi right lower and wheezes; Negative for rales Percussion: Negative for dullness Cardio regular rate, regular rhythm, S1 normal heart sound, S2 normal heart sound, no murmurs, no rub and no gallops GI normal to inspection, nondistended, normoactive bowel sounds no CVA tenderness Extremity no clubbing, cyanosis or edema Skin no rashes or lesions noted Neuro oriented x3, CN's II-XII intact bilaterally, moves all extremities and no focal motor deficits Psych cooperative and affect normal Lab / Micro Data Result Diagrams: 04/11/21 05:20 04/11/21 05:20 Labs: Laboratory Results - last 24 hr 04/10/21 14:03: WBC 10.7, RBC 4.10 L, Hgb 12.3 L, Hct 37.7 L, MCV 92.0, MCH 30.0, MCHC 32.6, RDW Std Deviation 49.6 H, RDW Coeff of [place] 14.6, Plt Count 213, MPV 11.6, Immature Gran % (Auto) 0.700, Neut % (Auto) 91.8 H, Lymph % (Auto) 2.1 L, [place] % (Auto) 5.2, Eos % (Auto) 0.0, Baso % (Auto) 0.2, Absolute Neuts (auto) 9.8 H, Absolute Lymphs (auto) 0.23 L, Nucleated RBC % 0, Differential Comment SCANNED, Platelet Estimate ADEQUATE 04/10/21 14:03: PT 16.9 H, INR 1.4, APTT 36.6 H 04/10/21 14:03: Sodium 127 L, Potassium 4.6, Chloride 95 L, Carbon Dioxide 23.0, Anion Gap 9, BUN 33 H, Creatinine 1.32 H, Estim Creat Clear Calc 50.28, Est GFR (MDRD) Af Amer 69, Est GFR (MDRD) Non-Af 57 L, BUN/Creatinine Ratio 25.0 H, Glucose 256 H, Calcium 8.6, Total Bilirubin 1.00, AST 41 H, ALT 21, Alkaline Phosphatase 74, Total Protein 7.4, Albumin 3.0 L, Globulin 4.4 H, Albumin/Globulin Ratio 0.7 L 04/10/21 14:03: Troponin I High Sens 39.5 04/10/21 14:30: Lactic Acid 1.5 04/10/21 16:30: COVID-19 (ANJUM) Negative 04/10/21 16:45: D-Dimer Quant (PE/DVT) 2.36 H* 04/10/21 20:30: Urine Color Yellow, Urine Clarity Clear, Urine pH 6.0, Ur Specific [place] 1.015, Urine Protein 100 H, Urine Glucose (UA) 1000 H, Urine Ketones 50 H, Urine Occult Blood 150 H, Urine Nitrite Negative, Urine Bilirubin Negative, Urine Urobilinogen Normal, Ur Leukocyte Esterase Negative, Urine RBC 0-5 SEEN, Urine WBC 0 SEEN, Ur Squamous Epith Cells 0-5 SEEN, Urine Bacteria 0 SEEN, Hyaline Casts 0-5 SEEN, Fine Granular Casts 0-5 SEEN, Urine Mucus 0 SEEN 04/10/21 20:30: Urine Osmolality 699 04/10/21 20:55: POC Glucose 391 H 04/10/21 21:30: Serum Osmolality Cancelled 04/10/21 23:55: Sodium Cancelled, Potassium Cancelled, Chloride Cancelled, Carbon Dioxide Cancelled, Anion Gap Cancelled, BUN Cancelled, Creatinine Cancelled, Estim Creat Clear Calc Cancelled, Est GFR (MDRD) Af Amer Cancelled, Est GFR (MDRD) Non-Af Cancelled, BUN/Creatinine Ratio Cancelled, Glucose Cancelled, Calcium Cancelled 04/10/21 : B-Natriuretic Peptide 91.9 04/11/21 01:30: Ur Random Sodium < 5 04/11/21 05:20: WBC 10.9, RBC 3.85 L, Hgb 11.5 L, Hct 34.8 L, MCV 90.4, MCH 29.9, MCHC 33.0, RDW Std Deviation 48.5 H, RDW Coeff of [place] 14.6, Plt Count 203, MPV 11.4, Immature Gran % (Auto) 0.600, Neut % (Auto) 93.6 H, Lymph % (Auto) 1.9 L, [place] % (Auto) 3.8, Eos % (Auto) 0.0, Baso % (Auto) 0.1, Absolute Neuts (auto) 10.2 H, Absolute Lymphs (auto) 0.21 L, Nucleated RBC % 0 04/11/21 05:20: Sodium 127 L, Potassium 4.1, Chloride 97 L, Carbon Dioxide 23.0, Anion Gap 7, BUN 24 H, Creatinine 1.13, Estim Creat Clear Calc 54.37, Est GFR (MDRD) Af Amer 83, Est GFR (MDRD) Non-Af 68, BUN/Creatinine Ratio 21.2 H, Glucose 250 H, Calcium 7.9 L, Total Bilirubin 0.50, AST 43 H, ALT 22, Alkaline Phosphatase 61, Total Protein 6.4, Albumin 2.5 L, Globulin 3.9, Albumin/Globulin Ratio 0.6 L 04/11/21 05:20: Serum Osmolality 280 04/11/21 06:30: POC Glucose 252 H ABG Data ABG results: ABG 04/11/21 00:20 Specimen Type ART Sample Site R Radial pH 7.50 H Bicarbonate Actual 17.5 L Total CO2 18 Base Excess -6 L O2 Saturation 93 L ABG pCO2 22.3 L ABG pO2 60 L Ernie Test Positive O2 Delivery Device Cannula Liter Flow 8.0 Radiology Impression Chest X-Ray 04/10/21 14:57 IMPRESSION: Right lower lobe pneumonia. Electronically Signed: Jamal Martinez MD ([place]) at 15:20 EDT , Service support , Chest CTA 04/10/21 17:20 IMPRESSION: 1. No evidence of pulmonary embolus. 2. Right lower lobe consolidation compatible with pneumonia. Individualized dose optimization techniques were used for this CT. at 1824 Reported and signed by: Antoine Yin MD Electronically Signed: Antoine Yin MD at 18:23 EDT Tel , Service support , Chest X-Ray 04/11/21 00:26 IMPRESSION: Bibasilar pneumonia worse since the prior study. Electronically Signed: Praveen Joiner MD at 2:33 EDT , Service support , Charges/Coding Visit Charges Inpatient E&M: 04815 Init Hosp L3
--- NOTE | 2021-04-11 08:02 | CPS ---
Pt decreased to 55% on Airvo. Nurse aware of change
[2021-04-11 08:19] LABS: Hemoglobin A1c 7.2 % (3.8-5.6)
[2021-04-11] MEDS: Glucerna Shake 120 ML LIQUID PO ×4 (08:53→21:45)
[2021-04-11] MEDS: Pantoprazole Sodium 20 MG Tablet PO ×2 (08:53→21:14)
[2021-04-11] MEDS: Lisinopril 5 MG Tablet PO (08:53)
[2021-04-11] MEDS: guaiFENesin 600 MG Tablet PO ×2 (08:53→21:15)
[2021-04-11] MEDS: Enoxaparin 40 MG/0.4 ML Syringe SC (08:53)
[2021-04-11] MEDS: Gabapentin 300 MG Capsule PO ×3 (08:53→16:21)
[2021-04-11] MEDS: 0.9% Normal Saline 1,000 ML 125 ML IV (08:57)
--- NOTE | 2021-04-11 10:06 | PCM.PN.HOSP ---
Subjective Subjective The patient reports ongoing shortness of breath but denies any chest pain. He does report that he is getting enough air. He does have occasional chills but denies any sweats. He does not have any pleuritic discomfort with deep breathing. He notes that he is less active because of his shortness of breath. He denies any abdominal pain, nausea, or vomiting. He does report chronic constipation. He does not [facility] He reports that he quit smoking 2 weeks ago but this is a 50/50 issue Objective Data Objective Data Vital Signs: Vital Signs Temp Pulse Resp BP Pulse Ox 98.4 F 98 20 H 112/65 95 04/11/21 08:48 04/11/21 08:48 04/11/21 08:48 04/11/21 08:48 04/11/21 08:48 Oxygen Flow Rate (L/min) 50 Oxygen Delivery Method Airvo Weight: 137 lb 5.568 oz Body Mass Index (BMI) 21.4 Intake & Output: Intake and Output for Last 24 Hours 04/09/21 04/10/21 04/11/21 23:59 23:59 23:59 Intake Total 455 / 695 1636.25 / 1636.25 Output Total 500 / 500 Balance 455 / 395 1136.25 / 1136.25 Lab / Micro Data Result Diagrams: 04/11/21 05:20 04/11/21 05:20 Labs: Laboratory Results - last 24 hr 04/11/21 01:30: Ur Random Sodium < 5 04/11/21 05:20: WBC 10.9, RBC 3.85 L, Hgb 11.5 L, Hct 34.8 L, MCV 90.4, MCH 29.9, MCHC 33.0, RDW Std Deviation 48.5 H, RDW Coeff of [place] 14.6, Plt Count 203, MPV 11.4, Immature Gran % (Auto) 0.600, Neut % (Auto) 93.6 H, Lymph % (Auto) 1.9 L, Glenn % (Auto) 3.8, Eos % (Auto) 0.0, Baso % (Auto) 0.1, Absolute Neuts (auto) 10.2 H, Absolute Lymphs (auto) 0.21 L, Nucleated RBC % 0 04/11/21 05:20: Sodium 127 L, Potassium 4.1, Chloride 97 L, Carbon Dioxide 23.0, Anion Gap 7, BUN 24 H, Creatinine 1.13, Estim Creat Clear Calc 54.37, Est GFR (MDRD) Af Amer 83, Est GFR (MDRD) Non-Af 68, BUN/Creatinine Ratio 21.2 H, Glucose 250 H, Calcium 7.9 L, Total Bilirubin 0.50, AST 43 H, ALT 22, Alkaline Phosphatase 61, Total Protein 6.4, Albumin 2.5 L, Globulin 3.9, Albumin/Globulin Ratio 0.6 L 04/11/21 05:20: Hemoglobin A1c 7.2 H 04/11/21 05:20: Serum Osmolality 280 04/11/21 06:30: POC Glucose 252 H Micro: Microbiology 04/11/21 01:30 Urine, Clean Catch Streptococcus pneumoniae Antigen (M - Final 04/11/21 01:30 Urine, Clean Catch Legionella Antigen - Final Legionella Antigen ABG Data ABG results: ABG 04/11/21 00:20 Specimen Type ART Sample Site R Radial pH 7.50 H Bicarbonate Actual 17.5 L Total CO2 18 Base Excess -6 L O2 Saturation 93 L ABG pCO2 22.3 L ABG pO2 60 L Ernie Test Positive O2 Delivery Device Cannula Liter Flow 8.0 Physical Exam Narrative The patient was in bed, unshaven with tachypnea and his high flow oxygen in place. He had decreased breath sounds bilaterally with no rales or wheezing. He had distant, regular heart sounds with a tachycardic rate in the 90s. He had a soft, nontender abdomen with normal bowel sounds. He had no pretibial edema and had intact distal pulses in the dorsalis pedis bilaterally. His hand-held urinal had concentrated urine at the bedside. He had a flat affect and was withdrawn but was interactive when engaged. He was alert and oriented x3 with no agitation. Assessment & Plan Assessment/Plan (1) Pneumonia: (2) Acute respiratory failure with hypoxia: PLAN: 70-year-old with an acute respiratory alkalosis secondary to acute hypoxemic respiratory failure from Legionella pneumonia in the setting of COPD and a [id number] smoking history complicated by a mild normocytic anemia, hyponatremia, uncontrolled type 2 diabetes, and an acute transaminitis. The patient will continue with IV Levaquin (today is day 2 of antibiotics) for his Legionella pneumonia. He had no leukocytosis but does have a temperature to 103 ?F-supportive care is appropriate. He will continue with high flow oxygen and wean as tolerated for saturation of greater than 92%-his PO2 was 60 on high flow oxygen. He declined a nicotine patch despite my recommendations but does seem interested in quitting altogether. I will monitor his AST in the setting of his acute Legionella pneumonia-he declines routine alcohol use. He will continue with his supplemental insulin for his type 2 diabetes-I will increase his long-acting insulin to 15 units at bedtime. The patient's urine sodium was undetectable consistent with poor oral intake-we will continue with IV fluids with normal saline. I will monitor his hyponatremia with IV fluid-his low urine sodium is not consistent with SIADH in the setting of his pneumonia. I will follow his CBC daily with his white blood cell count and anemia-there is no need for blood transfusion. He had improvement in his creatinine with supplemental IV fluids consistent with his low urine sodium-he had mild dehydration. The patient's BUN to creatinine ratio improved from 25 down to 21 with supplemental IV fluids. I did review the plan of care with the fish machine feeder in the context of the Legionella and the IV steroids with his diabetes. I will continue to hold his Metformin with his recent contrast. He is on twice daily Protonix and daily Lovenox for GI and DVT prophylaxis. The patient is a full code. He was Covid negative. The patient does not appear particularly engaged about quitting smoking altogether. His A1c was 7.2%. We talked about the benefits of behavior modification for his long-term health. He has intermittent follow-up at the [place]. It will be important to reinforce these issues once the patient has some improvement in his clinical condition as he remains withdrawn likely at least in part from his illness. Charges/Coding Visit Charges Inpatient E&M: 73680 Subs Hosp L3
[2021-04-11 11:55] LABS: Bedside Glucose 283 mg/dL (70-110)
[2021-04-11 16:50] LABS: Bedside Glucose 255 mg/dL (70-110)
[2021-04-11] MEDS: levoFLOXacin IV 750 MG/150 ML BAG 100 MG IV (21:10)
[2021-04-11] MEDS: Atorvastatin Calcium 10 MG Tablet PO (21:14)
[2021-04-11 22:51] LABS: Bedside Glucose 361 mg/dL (70-110)
[2021-04-11] MEDS: HYDROcodone Bitartrate/Apap 5/325 Tablet PO (23:03)
[2021-04-12] VITALS (27 sets, daily range): BP systolic 108–135; BP diastolic 47–70; PULSE 90–113; RESP 19–30; TEMP 36.8–38.3; O2SAT 92–100
[2021-04-12] MEDS: Ipratropium/Albuterol Sulfate 3 ML AMPUL.NEB INHALATION ×6 (00:05→22:20)
[2021-04-12 05:35] LABS: Absolute Lymphocyte Count 0.17 X10^3/uL (0.83-4.51); Absolute Neutrophil Count 10.4 X10^3/uL (2.0-7.7); Basophil# 0.01 X10^3/uL; Basophil% 0.1 % (0-1); Hemoglobin 10.9 g/dL (13.0-16.5); Lymphocyte # 0.17 X10^3/ul (0.83-4.51); Lymphocyte % 1.5 % (19-41); Mean Corpuscular Hgb 29.8 pg (27.0-32.0); Mean Corpuscular Volume 90.2 fL (80-94); Monocyte# 0.52 X10^3/uL; Monocyte% 4.6 % (0-10); NRBC Flagged by Analyzer 0 % (0-5); Neutrophil # 10.43 X10^3/uL (2.7-7.7); POSITIVE DIFFERENTIAL YES; POSITIVE MORPHOLOGY YES; Platelet Count 215 K/mm3 (150-450); RBC Distribution Width CV 14.6 % (11.6-14.6); RBC Distribution Width SD 48.8 fl (35.1-43.9); Red Blood Count 3.66 M/mm3 (4.6-6.2); White Blood Count 11.2 K/mm3 (4.4-11.0)
[2021-04-12 05:53] LABS: AST(SGOT) 37 U/L (15-37); Anion Gap 9 (5-15); BUN 21 mg/dL (7-18); BUN/Creat Ratio 17.9 RATIO (10-20); Calcium,Total 7.9 mg/dL (8.5-10.1); Chloride 96 mmol/L (98-107); Creatinine, Serum 1.17 mg/dL (0.70-1.30); EST Glomerular Filtration Rate 66 mL/min (>60); Est Glom Filt Rate - Afr Amer 79 mL/min (>60); Estimated Creatinine Clearance 52.51 ml/min; Glucose 325 mg/dL (74-106); Potassium 4.3 mmol/L (3.5-5.1); Sodium Level 126 mmol/L (136-145)
[2021-04-12 05:57] LABS: Differential Indicated SCAN CRITERIA MET
[2021-04-12 06:55] LABS: Bedside Glucose 327 mg/dL (70-110)
[2021-04-12] MEDS: Insulin Lispro 100 UNIT/ML INSULN.PEN SC ×4 (07:02→22:41)
--- NOTE | 2021-04-12 08:09 | PCM.PN.HOSP ---
Subjective Subjective Patient is a 70-year-old gentleman admitted with generalized aches, fever, shortness of breath and increasing cough. Patient was found to be hypoxic on arrival. Patient urine for Legionella antigen came back positive Objective Data Objective Data Vital Signs: Vital Signs Temp Pulse Resp BP Pulse Ox 99.2 F H 104 H 24 H 129/67 H 93 04/12/21 05:53 04/12/21 06:59 04/12/21 06:53 04/12/21 05:53 04/12/21 06:53 Oxygen Flow Rate (L/min) 50 Oxygen Delivery Method Airvo Weight: 62.3 kg Body Mass Index (BMI) 21.4 Intake & Output: Intake and Output for Last 24 Hours 04/10/21 04/11/21 04/12/21 23:59 23:59 23:59 Intake Total 455 / 695 3087.50 / 3887.50 1020 / 1020 Output Total 1750 / 2600 1300 / 1300 Balance 455 / 395 1337.50 / 1287.50 -280 / -280 Medical Nutrition Assessment Dietitian: Nutrition Therapy Diagnosis Start: 04/11/21 13:02 Freq: Status: Active Protocol: Document 04/11/21 13:16 SLA (Rec: 04/11/21 13:16 SLA [id number]) Nutrition Malnutrition Evidence of Malnutrition Exists Yes Malnutrition (severe): Acute Illness/Injury Evidenced By Suboptimal Energy Intake ( Moderate),Weight Loss (Severe) ,Physical Changes (Moderate) Clinical Problem Altered Nutrient-Related Laboratory Values Etiology related to DM and steroid administration Signs/Symptoms as evidenced by gluc 250 and A1c=7.2 Status Active Problem Acute Disease or Injury Related Malnutrition Etiology related to acute illness Signs/Symptoms as evidenced by pt with only fair po intake and wt loss of 8.5% in past 2 months and fat /muscle loss (orbital/temporal , clavicle areas) Status Active Problem Recommendation Dietitian Recommendations/Changes Will change diet to Cardiac / Consistent Carbohydrate diet Will continue glucerna nickolas w / medpass 4x/day Lab / Micro Data Result Diagrams: 04/12/21 05:08 04/12/21 05:08 Labs: Laboratory Results - last 24 hr 04/11/21 05:20: Hemoglobin A1c 7.2 H 04/11/21 11:27: POC Glucose 283 H 04/11/21 16:18: POC Glucose 255 H 04/11/21 21:41: POC Glucose 361 H 04/12/21 05:08: WBC 11.2 H, RBC 3.66 L, Hgb 10.9 L, Hct 33.0 L, MCV 90.2, MCH 29.8, MCHC 33.0, RDW Std Deviation 48.8 H, RDW Coeff of [place] 14.6, Plt Count 215, MPV 11.0, Immature Gran % (Auto) 0.800, Neut % (Auto) 93.0 H, Lymph % (Auto) 1.5 L, [place] % (Auto) 4.6, Eos % (Auto) 0.0, Baso % (Auto) 0.1, Absolute Neuts (auto) 10.4 H, Absolute Lymphs (auto) 0.17 L, Nucleated RBC % 0 04/12/21 05:08: Sodium 126 L, Potassium 4.3, Chloride 96 L, Carbon Dioxide 21.0, Anion Gap 9, BUN 21 H, Creatinine 1.17, Estim Creat Clear Calc 52.51, Est GFR (MDRD) Af Amer 79, Est GFR (MDRD) Non-Af 66, BUN/Creatinine Ratio 17.9, Glucose 325 H, Calcium 7.9 L, AST 37 04/12/21 06:52: POC Glucose 327 H Micro: Microbiology 04/11/21 01:30 Urine, Clean Catch Streptococcus pneumoniae Antigen (M - Final 04/11/21 01:30 Urine, Clean Catch Legionella Antigen - Final Legionella Antigen Physical Exam Narrative GENERAL: Dyspneic at rest on Airvo HEENT: Atraumatic; EYES; Anicteric, Normal Conjunctiva NECK; supple, normal thyroid, RESPIRATORY: Diminished to auscultation CARDIOVASCULAR: Regular S1 S2, GI: soft, normoactive bowel sounds, : No Renal angle tenderness; EXTREMITIES: No edema, no clubbing, MUSCULOSKELETAL: no muscle waisting NEURO: Awake; no lateralizing signs. SKIN: No Rash PSYCH; Flat affect Assessment & Plan Assessment/Plan (1) Pneumonia: (2) Acute respiratory failure with hypoxia: PLAN: Patient is a 70-year-old gentleman admitted with generalized aches, fever, shortness of breath and increasing cough. Patient was found to be hypoxic on arrival. Patient urine for Legionella antigen came back positive 1. Acute hypoxic respiratory failure ?Secondary to Legionella pneumonia. Admitted to regular nursing floor managed with noninvasive ventilation via Airvo as well as broad-spectrum antibiotic therapy. Consult was placed to pulmonary medicine 2. Acute Legionella pneumonia ?Management as discussed above 3. COPD ?Patient denies oxygen use at home. Presented with mild exacerbation as a result of above patient managed with bronchodilator treatment, systemic steroids and antibiotics discussed above 4. Hypertension - Blood pressure controlled, home medications continued with dose adjustment as needed 5. Diabetes mellitus type II -patient's oral hypoglycemics held. Placed on long acting insulin, Accu-Cheks a.c. and at bedtime and covered with sliding scale insulin 6. Dyslipidemia -Patient is on statin therapy, continued at home dose 7. GERD ?Patient is on PPI did continue 8. DVT prophylaxis - On enoxaparin Charges/Coding Visit Charges Inpatient E&M: 11556 [facility] Hosp L3
[2021-04-12] MEDS: guaiFENesin 600 MG Tablet PO ×2 (08:36→22:26)
[2021-04-12] MEDS: Pantoprazole Sodium 20 MG Tablet PO ×2 (08:36→22:26)
[2021-04-12] MEDS: Gabapentin 300 MG Capsule PO ×3 (08:36→17:24)
[2021-04-12] MEDS: Lisinopril 5 MG Tablet PO (08:36)
[2021-04-12] MEDS: Enoxaparin 40 MG/0.4 ML Syringe SC (08:37)
[2021-04-12] MEDS: HYDROcodone Bitartrate/Apap 5/325 Tablet PO ×3 (08:39→23:56)
[2021-04-12] MEDS: Glucerna Shake 120 ML LIQUID PO ×4 (08:39→22:46)
--- NOTE | 2021-04-12 10:15 | CASEMGMT ---
RN LC Face to Face with patient for initial transition planning/care coordination assessment. RN CM introduced self and role at [facility]. Patient lying in bed, alert and oriented. Patient willing to participate in assessment and is able to answer all questions appropriately. Care providers, pharmacy, and demographics verified. Patient wishes to discharge home, denies need for home health at this time. Patient states he has no further needs or concerns at this time. CM to follow for discharge planning needs that may arise. PCP: Dr. Deleon at [facility] Specialists: none Preferred Pharmacy: [facility] Pres[facility] Benefit: yes Living Will/HPOA: none LNOK: step daughter Living Arrangements: Patient lives alone in a mobile home with 5 steps and railing. Patient states he is independent at home. Transportation: self DME/HHC: patient states he has shower chair and cane. Patient denies previous HHC or SNF. Patient currently on Airvo, will monitor for need for home oxygen at discharge. Disposition Plan: Patient to discharge home with family support and follow-up plans in place. Raquel VANESSA, RN, CM
[2021-04-12 11:51] LABS: Bedside Glucose 379 mg/dL (70-110)
--- NOTE | 2021-04-12 12:49 | PCM.PN.INT ---
Assessment & Plan Assessment/Plan (1) Acute respiratory failure with hypoxia: PLAN: RECOMMENDATIONS: 1. Continue Levaquin as ordered. 2. Continue scheduled bronchodilators and steroids. 3. Continue heated high flow oxygen and wean FiO2 to maintain saturations at or above 90%. 4. Encourage incentive spirometer use and mobilize patient as tolerated. IMPRESSIONS: 1. Acute hypoxemic respiratory failure Likely secondary to COPD with exacerbation precipitated by Legionella pneumonia. The patient's chest imaging did reveal a dense right lower lobe consolidation and the patient did have a positive Legionella urine antigen. The patient remains on appropriate antimicrobial therapy. He will also be continued on scheduled bronchodilator therapy and IV steroids. Plan to wean supplemental oxygen as tolerated to maintain saturations at or above 90%. Encourage incentive spirometer use and mobilize patient as tolerated. 2. Diabetes mellitus/unintentional weight loss/advanced age Complicates care, management, recovery and prognosis. Continue home medications as indicated. This note was generated with [employer] dictation software. It may contain incorrect words, spelling, and punctuation that were not noted in checking the note before signing. Subjective Subjective The patient was seen and examined at the bedside this morning. Events from the last 24 hours have been reviewed. The patient currently has a low-grade fever. He is currently maintaining appropriate oxygen saturations on airvo heated high flow with an FiO2 requirement of 55% and flow rate of 50 L/min. Sodium remains low at 126 with a chloride of 96. The patient reports the continued presence of dyspnea along with a nonproductive cough. Objective Data Objective Data The patient's most recent lab work, culture data and imaging studies have all been personally reviewed. Legionella antigen was positive on April 11. Vital Signs: Vital Signs Temp Pulse Resp BP Pulse Ox 98.2 F 97 19 H 108/61 93 04/12/21 11:00 04/12/21 11:00 04/12/21 11:00 04/12/21 11:00 04/12/21 11:00 Oxygen Flow Rate (L/min) 50 Oxygen Delivery Method Airvo Weight: 62.3 kg Body Mass Index (BMI) 21.4 Intake & Output: Intake and Output for Last 24 Hours 04/10/21 04/11/21 04/12/21 23:59 23:59 23:59 Intake Total 455 / 695 3087.50 / 3887.50 1260 / 1260 Output Total 1750 / 2600 1550 / 1550 Balance 455 / 395 1337.50 / 1287.50 -290 / -290 Medical Nutrition Assessment Dietitian: Nutrition Therapy Diagnosis Start: 04/11/21 13:02 Freq: Status: Active Protocol: Document 04/11/21 13:16 HECTOR (Rec: 04/11/21 13:16 SLA [id number]) Nutrition Malnutrition Evidence of Malnutrition Exists Yes Malnutrition (severe): Acute Illness/Injury Evidenced By Suboptimal Energy Intake ( Moderate),Weight Loss (Severe) ,Physical Changes (Moderate) Clinical Problem Altered Nutrient-Related Laboratory Values Etiology related to DM and steroid administration Signs/Symptoms as evidenced by gluc 250 and A1c=7.2 Status Active Problem Acute Disease or Injury Related Malnutrition Etiology related to acute illness Signs/Symptoms as evidenced by pt with only fair po intake and wt loss of 8.5% in past 2 months and fat /muscle loss (orbital/temporal , clavicle areas) Status Active Problem Recommendation Dietitian Recommendations/Changes Will change diet to Cardiac / Consistent Carbohydrate diet Will continue glucerna shake w / medpass 4x/day Lab / Micro Data Attestation: I reviewed the patient's lab results. Result Diagrams: 04/13/21 07:50 04/13/21 07:50 Labs: Laboratory Results - last 24 hr 04/11/21 16:18: POC Glucose 255 H 04/11/21 21:41: POC Glucose 361 H 04/12/21 05:08: WBC 11.2 H, RBC 3.66 L, Hgb 10.9 L, Hct 33.0 L, MCV 90.2, MCH 29.8, MCHC 33.0, RDW Std Deviation 48.8 H, RDW Coeff of [place] 14.6, Plt Count 215, MPV 11.0, Immature Gran % (Auto) 0.800, Neut % (Auto) 93.0 H, Lymph % (Auto) 1.5 L, [place] % (Auto) 4.6, Eos % (Auto) 0.0, Baso % (Auto) 0.1, Absolute Neuts (auto) 10.4 H, Absolute Lymphs (auto) 0.17 L, Nucleated RBC % 0 04/12/21 05:08: Sodium 126 L, Potassium 4.3, Chloride 96 L, Carbon Dioxide 21.0, Anion Gap 9, BUN 21 H, Creatinine 1.17, Estim Creat Clear Calc 52.51, Est GFR (MDRD) Af Amer 79, Est GFR (MDRD) Non-Af 66, BUN/Creatinine Ratio 17.9, Glucose 325 H, Calcium 7.9 L, AST 37 04/12/21 06:52: POC Glucose 327 H 04/12/21 11:22: POC Glucose 379 H Micro: Microbiology 04/10/21 20:30 Urine, Clean Catch Urine Culture - Final Mixed Gram Positive Organisms 04/11/21 01:30 Urine, Clean Catch Streptococcus pneumoniae Antigen (M - Final 04/11/21 01:30 Urine, Clean Catch Legionella Antigen - Final Legionella Antigen Physical Exam Const alert, oriented x3 and no apparent distress General Appearance: cooperative HEENT normocephalic, head/scalp atraumatic and moist oral mucous membranes Eyes PERRL and EOMs intact bilaterally Neck supple General: trachea midline Resp no use of accessory muscles Effort and Inspection: tachypneic Auscultation: Negative for rales, rhonchi or wheezes Cardio regular rate and regular rhythm GI normal to inspection, nondistended, normoactive bowel sounds Extremity no clubbing, cyanosis or edema Skin no rashes or lesions noted Neuro CN's II-XII intact bilaterally and no focal motor deficits Psych cooperative and affect normal Charges/Coding Visit Charges Inpatient E&M: 28296 Subs Hosp L2
[2021-04-12 18:59] LABS: Bedside Glucose 434 mg/dL (70-110)
[2021-04-12] MEDS: levoFLOXacin IV 750 MG/150 ML BAG 100 MG IV (22:26)
[2021-04-12] MEDS: 0.9% Saline Lock 10 ML Syringe IV (22:27)
[2021-04-12] MEDS: Atorvastatin Calcium 10 MG Tablet PO (22:27)
[2021-04-12 23:36] LABS: Bedside Glucose 287 mg/dL (70-110)
[2021-04-12] MEDS: Acetaminophen 325 MG Tablet 650 MG PO (23:57)
[2021-04-13] VITALS (23 sets, daily range): BP systolic 119–148; BP diastolic 62–72; PULSE 76–112; RESP 15–28; TEMP 36.6–37.3; O2SAT 75–96
[2021-04-13] MEDS: 0.9% Saline Lock 10 ML Syringe IV (04:51)
[2021-04-13] MEDS: Insulin Lispro 100 UNIT/ML INSULN.PEN SC ×4 (06:17→21:57)
[2021-04-13] MEDS: Ipratropium/Albuterol Sulfate 3 ML AMPUL.NEB INHALATION ×5 (06:42→22:12)
[2021-04-13 07:05] LABS: Bedside Glucose 322 mg/dL (70-110)
--- NOTE | 2021-04-13 07:30 | PCM.PN.HOSP ---
Subjective Subjective Patient seen patient is quite agitated on being on diabetic diet. He requested for regular diet. His breathing still remains labored and patient remains on Airvo Objective Data Objective Data Vital Signs: Vital Signs Temp Pulse Resp BP Pulse Ox 98 F 79 20 H 125/68 H 95 04/13/21 04:57 04/13/21 06:43 04/13/21 06:43 04/13/21 04:57 04/13/21 06:43 Oxygen Flow Rate (L/min) 50 Oxygen Delivery Method Airvo Weight: 62.3 kg Body Mass Index (BMI) 21.4 Intake & Output: Intake and Output for Last 24 Hours 04/11/21 04/12/21 04/13/21 23:59 23:59 23:59 Intake Total 3087.50 / 3887.50 1410 / 1410 Output Total 1750 / 2600 2225 / 2225 1100 / 1100 Balance 1337.50 / 1287.50 -815 / -815 -1100 / -1100 Medical Nutrition Assessment Dietitian: Nutrition Therapy Diagnosis Start: 04/11/21 13:02 Freq: Status: Active Protocol: Document 04/11/21 13:16 HECTOR (Rec: 04/11/21 13:16 SLA [id number]) Nutrition Malnutrition Evidence of Malnutrition Exists Yes Malnutrition (severe): Acute Illness/Injury Evidenced By Suboptimal Energy Intake ( Moderate),Weight Loss (Severe) ,Physical Changes (Moderate) Clinical Problem Altered Nutrient-Related Laboratory Values Etiology related to DM and steroid administration Signs/Symptoms as evidenced by gluc 250 and A1c=7.2 Status Active Problem Acute Disease or Injury Related Malnutrition Etiology related to acute illness Signs/Symptoms as evidenced by pt with only fair po intake and wt loss of 8.5% in past 2 months and fat /muscle loss (orbital/temporal , clavicle areas) Status Active Problem Recommendation Dietitian Recommendations/Changes Will change diet to Cardiac / Consistent Carbohydrate diet Will continue glucerna shake w / medpass 4x/day Lab / Micro Data Result Diagrams: 04/13/21 07:50 04/13/21 07:50 Labs: Laboratory Results - last 24 hr 04/12/21 11:22: POC Glucose 379 H 04/12/21 17:23: POC Glucose 434 H 04/12/21 22:39: POC Glucose 287 H 04/13/21 06:15: POC Glucose 322 H Micro: Microbiology 04/10/21 20:30 Urine, Clean Catch Urine Culture - Final Mixed Gram Positive Organisms 04/11/21 01:30 Urine, Clean Catch Streptococcus pneumoniae Antigen (M - Final 04/11/21 01:30 Urine, Clean Catch Legionella Antigen - Final Legionella Antigen Physical Exam Narrative GENERAL: Dyspneic at rest on Airvo HEENT: Atraumatic; EYES; Anicteric, Normal Conjunctiva NECK; supple, normal thyroid, RESPIRATORY: Diminished to auscultation CARDIOVASCULAR: Regular S1 S2, GI: soft, normoactive bowel sounds, : No Renal angle tenderness; EXTREMITIES: No edema, no clubbing, MUSCULOSKELETAL: no muscle waisting NEURO: Awake; no lateralizing signs. SKIN: No Rash PSYCH; Flat affect Assessment & Plan Assessment/Plan (1) Pneumonia: (2) Acute respiratory failure with hypoxia: PLAN: Patient is a 70-year-old gentleman admitted with generalized aches, fever, shortness of breath and increasing cough. Patient was found to be hypoxic on arrival. Patient urine for Legionella antigen came back positive 1. Acute hypoxic respiratory failure ?Secondary to Legionella pneumonia. Admitted to regular nursing floor managed with noninvasive ventilation via Airvo as well as broad-spectrum antibiotic therapy. Consult was placed to pulmonary medicine -04/13/2021; His breathing still remains labored and patient remains on Airvo 2. Acute Legionella pneumonia ?Management as discussed above 3. COPD ?Patient denies oxygen use at home. Presented with mild exacerbation as a result of above patient managed with bronchodilator treatment, systemic steroids and antibiotics discussed above 4. Hypertension - Blood pressure controlled, home medications continued with dose adjustment as needed 5. Diabetes mellitus type II -patient's oral hypoglycemics held. Placed on long acting insulin, Accu-Cheks a.c. and at bedtime and covered with sliding scale insulin 6. Dyslipidemia -Patient is on statin therapy, continued at home dose 7. GERD ?Patient is on PPI did continue 8. DVT prophylaxis - On enoxaparin Charges/Coding Visit Charges Inpatient E&M: 93965 Subs Hosp L2
[2021-04-13 08:04] LABS: Absolute Lymphocyte Count 0.16 X10^3/uL (0.83-4.51); Absolute Neutrophil Count 10.3 X10^3/uL (2.0-7.7); Basophil# 0.02 X10^3/uL; Basophil% 0.2 % (0-1); Differential Indicated SCAN CRITERIA MET; Hematocrit 35.6 % (40-54); Hemoglobin 11.7 g/dL (13.0-16.5); Lymphocyte # 0.16 X10^3/ul (0.83-4.51); Lymphocyte % 1.4 % (19-41); Mean Corp Hgb Conc 32.9 g/dL (32-36); Mean Corpuscular Hgb 29.7 pg (27.0-32.0); Mean Corpuscular Volume 90.4 fL (80-94); Mean Platelet Vol. 11.5 fl (6.2-12.0); Monocyte# 0.54 X10^3/uL; Monocyte% 4.8 % (0-10); NRBC Flagged by Analyzer 0 % (0-5); Neutrophil # 10.29 X10^3/uL (2.7-7.7); Neutrophil % 92.4 % (47-70); POSITIVE DIFFERENTIAL YES; Platelet Count 235 K/mm3 (150-450); RBC Distribution Width CV 14.5 % (11.6-14.6); RBC Distribution Width SD 48.3 fl (35.1-43.9); Red Blood Count 3.94 M/mm3 (4.6-6.2); White Blood Count 11.1 K/mm3 (4.4-11.0)
[2021-04-13] MEDS: HYDROcodone Bitartrate/Apap 5/325 Tablet PO ×2 (08:10→14:38)
[2021-04-13] MEDS: Glucerna Shake 120 ML LIQUID PO ×4 (08:10→21:46)
[2021-04-13] MEDS: Enoxaparin 40 MG/0.4 ML Syringe SC (08:11)
[2021-04-13] MEDS: Gabapentin 300 MG Capsule PO ×3 (08:12→17:25)
[2021-04-13] MEDS: guaiFENesin 600 MG Tablet PO ×2 (08:12→21:47)
[2021-04-13] MEDS: Pantoprazole Sodium 20 MG Tablet PO ×2 (08:12→21:48)
[2021-04-13] MEDS: Lisinopril 5 MG Tablet PO (08:12)
[2021-04-13 08:24] LABS: Anion Gap 7 (5-15); BUN 23 mg/dL (7-18); BUN/Creat Ratio 22.3 RATIO (10-20); Calcium,Total 8.4 mg/dL (8.5-10.1); Chloride 98 mmol/L (98-107); Creatinine, Serum 1.03 mg/dL (0.70-1.30); EST Glomerular Filtration Rate 76 mL/min (>60); Est Glom Filt Rate - Afr Amer 92 mL/min (>60); Estimated Creatinine Clearance 59.65 ml/min; Glucose 303 mg/dL (74-106); Potassium 4.4 mmol/L (3.5-5.1); Sodium Level 129 mmol/L (136-145)
[2021-04-13 08:28] LABS: Hypochromasia RARE
[2021-04-13 08:29] LABS: Platelet Estimate ADEQUATE (ADEQ)
--- NOTE | 2021-04-13 12:00 | CASEMGMT ---
Palliative consult completed for Lace/Strata 3. Patient does not meet criteria for palliative consult at this time.
[2021-04-13 12:01] LABS: Bedside Glucose 355 mg/dL (70-110)
[2021-04-13 17:36] LABS: Bedside Glucose 357 mg/dL (70-110)
[2021-04-13] MEDS: levoFLOXacin IV 750 MG/150 ML BAG 100 MG IV (21:47)
[2021-04-13] MEDS: Atorvastatin Calcium 10 MG Tablet PO (21:48)
[2021-04-13 22:10] LABS: Bedside Glucose 388 mg/dL (70-110)
[2021-04-14] VITALS (21 sets, daily range): BP systolic 128–146; BP diastolic 60–71; PULSE 78–100; RESP 18–27; TEMP 36.6–37.1; O2SAT 89–97
[2021-04-14 05:59] LABS: Absolute Lymphocyte Count 0.26 X10^3/uL (0.83-4.51); Absolute Neutrophil Count 10.5 X10^3/uL (2.0-7.7); Basophil# 0.01 X10^3/uL; Basophil% 0.1 % (0-1); Hematocrit 34.9 % (40-54); Hemoglobin 11.5 g/dL (13.0-16.5); Lymphocyte # 0.26 X10^3/ul (0.83-4.51); Lymphocyte % 2.3 % (19-41); Mean Corpuscular Hgb 29.7 pg (27.0-32.0); Mean Corpuscular Volume 90.2 fL (80-94); Mean Platelet Vol. 11.3 fl (6.2-12.0); Monocyte# 0.66 X10^3/uL; Monocyte% 5.7 % (0-10); NRBC Flagged by Analyzer 0 % (0-5); Neutrophil # 10.47 X10^3/uL (2.7-7.7); Neutrophil % 90.9 % (47-70); POSITIVE DIFFERENTIAL YES; Platelet Count 267 K/mm3 (150-450); RBC Distribution Width CV 14.5 % (11.6-14.6); RBC Distribution Width SD 47.8 fl (35.1-43.9); Red Blood Count 3.87 M/mm3 (4.6-6.2); White Blood Count 11.5 K/mm3 (4.4-11.0)
[2021-04-14 06:07] LABS: Differential Indicated SCAN CRITERIA MET
[2021-04-14] MEDS: Insulin Lispro 100 UNIT/ML INSULN.PEN SC ×4 (06:13→21:08)
[2021-04-14 06:31] LABS: Bedside Glucose 293 mg/dL (70-110)
[2021-04-14] MEDS: Ipratropium/Albuterol Sulfate 3 ML AMPUL.NEB INHALATION ×5 (06:41→23:39)
--- NOTE | 2021-04-14 07:37 | PCM.PN.HOSP ---
Subjective Subjective Patient remains on high flow oxygen with no significant change in his overall condition Objective Data Objective Data Vital Signs: Vital Signs Temp Pulse Resp BP Pulse Ox 98.8 F 85 22 H 130/64 H 95 04/14/21 02:00 04/14/21 05:26 04/14/21 05:26 04/14/21 02:00 04/14/21 05:26 Oxygen Flow Rate (L/min) 50 Oxygen Delivery Method Airvo Weight: 62.3 kg Body Mass Index (BMI) 21.4 Intake & Output: Intake and Output for Last 24 Hours 04/12/21 04/13/21 04/14/21 23:59 23:59 23:59 Intake Total 1410 / 1410 150 / 150 900 / 900 Output Total 2225 / 2225 2200 / 2200 1100 / 1100 Balance -815 / -815 -2050 / -2050 -200 / -200 Medical Nutrition Assessment Dietitian: Nutrition Therapy Diagnosis Start: 04/11/21 13:02 Freq: Status: Active Protocol: Document 04/11/21 13:16 HECTOR (Rec: 04/11/21 13:16 SLA [id number]) Nutrition Malnutrition Evidence of Malnutrition Exists Yes Malnutrition (severe): Acute Illness/Injury Evidenced By Suboptimal Energy Intake ( Moderate),Weight Loss (Severe) ,Physical Changes (Moderate) Clinical Problem Altered Nutrient-Related Laboratory Values Etiology related to DM and steroid administration Signs/Symptoms as evidenced by gluc 250 and A1c=7.2 Status Active Problem Acute Disease or Injury Related Malnutrition Etiology related to acute illness Signs/Symptoms as evidenced by pt with only fair po intake and wt loss of 8.5% in past 2 months and fat /muscle loss (orbital/temporal , clavicle areas) Status Active Problem Recommendation Dietitian Recommendations/Changes Will change diet to Cardiac / Consistent Carbohydrate diet Will continue glucerna shake w / medpass 4x/day Lab / Micro Data Result Diagrams: 04/14/21 05:20 04/13/21 07:50 Labs: Laboratory Results - last 24 hr 04/13/21 07:50: WBC 11.1 H, RBC 3.94 L, Hgb 11.7 L, Hct 35.6 L, MCV 90.4, MCH 29.7, MCHC 32.9, RDW Std Deviation 48.3 H, RDW Coeff of [place] 14.5, Plt Count 235, MPV 11.5, Immature Gran % (Auto) 1.200 H, Neut % (Auto) 92.4 H, Lymph % (Auto) 1.4 L, [place] % (Auto) 4.8, Eos % (Auto) 0.0, Baso % (Auto) 0.2, Absolute Neuts (auto) 10.3 H, Absolute Lymphs (auto) 0.16 L, Nucleated RBC % 0, Platelet Estimate ADEQUATE, Hypochromasia RARE 04/13/21 07:50: Sodium 129 L, Potassium 4.4, Chloride 98, Carbon Dioxide 24.0, Anion Gap 7, BUN 23 H, Creatinine 1.03, Estim Creat Clear Calc 59.65, Est GFR (MDRD) Af Amer 92, Est GFR (MDRD) Non-Af 76, BUN/Creatinine Ratio 22.3 H, Glucose 303 H, Calcium 8.4 L, Magnesium 2.0 04/13/21 11:39: POC Glucose 355 H 04/13/21 17:23: POC Glucose 357 H 04/13/21 21:56: POC Glucose 388 H 04/14/21 05:20: WBC 11.5 H, RBC 3.87 L, Hgb 11.5 L, Hct 34.9 L, MCV 90.2, MCH 29.7, MCHC 33.0, RDW Std Deviation 47.8 H, RDW Coeff of [place] 14.5, Plt Count 267, MPV 11.3, Immature Gran % (Auto) 1.000 H, Neut % (Auto) 90.9 H, Lymph % (Auto) 2.3 L, [place] % (Auto) 5.7, Eos % (Auto) 0.0, Baso % (Auto) 0.1, Absolute Neuts (auto) 10.5 H, Absolute Lymphs (auto) 0.26 L, Nucleated RBC % 0 04/14/21 06:12: POC Glucose 293 H Micro: Microbiology 04/10/21 20:30 Urine, Clean Catch Urine Culture - Final Mixed Gram Positive Organisms 04/11/21 01:30 Urine, Clean Catch Streptococcus pneumoniae Antigen (M - Final 04/11/21 01:30 Urine, Clean Catch Legionella Antigen - Final Legionella Antigen Physical Exam Narrative GENERAL: Dyspneic at rest on Airvo HEENT: Atraumatic; EYES; Anicteric, Normal Conjunctiva NECK; supple, normal thyroid, RESPIRATORY: Diminished to auscultation CARDIOVASCULAR: Regular S1 S2, GI: soft, normoactive bowel sounds, : No Renal angle tenderness; EXTREMITIES: No edema, no clubbing, MUSCULOSKELETAL: no muscle waisting NEURO: Awake; no lateralizing signs. SKIN: No Rash PSYCH; Flat affect Assessment & Plan Assessment/Plan (1) Pneumonia: (2) Acute respiratory failure with hypoxia: PLAN: Patient is a 70-year-old gentleman admitted with generalized aches, fever, shortness of breath and increasing cough. Patient was found to be hypoxic on arrival. Patient urine for Legionella antigen came back positive 1. Acute hypoxic respiratory failure ?Secondary to Legionella pneumonia. Admitted to regular nursing floor managed with noninvasive ventilation via Airvo as well as broad-spectrum antibiotic therapy. Consult was placed to pulmonary medicine -04/13/2021; His breathing still remains labored and patient remains on Airvo -04/13/2021; no significant change in patient's breathing status still remains on Airvo 2. Acute Legionella pneumonia ?Management as discussed above 3. COPD ?Patient denies oxygen use at home. Presented with mild exacerbation as a result of above patient managed with bronchodilator treatment, systemic steroids and antibiotics discussed above 4. Hypertension - Blood pressure controlled, home medications continued with dose adjustment as needed 5. Diabetes mellitus type II -patient's oral hypoglycemics held. Placed on long acting insulin, Accu-Cheks a.c. and at bedtime and covered with sliding scale insulin 6. Dyslipidemia -Patient is on statin therapy, continued at home dose 7. GERD ?Patient is on PPI did continue 8. DVT prophylaxis - On enoxaparin Charges/Coding Visit Charges Inpatient E&M: 72563 Subs Hosp L2
[2021-04-14] MEDS: Glucerna Shake 120 ML LIQUID PO ×4 (09:02→21:08)
[2021-04-14] MEDS: Lisinopril 5 MG Tablet PO (09:03)
[2021-04-14] MEDS: Pantoprazole Sodium 20 MG Tablet PO ×2 (09:03→21:07)
[2021-04-14] MEDS: HYDROcodone Bitartrate/Apap 5/325 Tablet PO (09:03)
[2021-04-14] MEDS: Gabapentin 300 MG Capsule PO ×3 (09:03→17:54)
[2021-04-14] MEDS: guaiFENesin 600 MG Tablet PO ×2 (09:03→21:07)
[2021-04-14] MEDS: Enoxaparin 40 MG/0.4 ML Syringe SC (09:03)
--- NOTE | 2021-04-14 10:11 | PCM.PN.INT ---
Assessment & Plan Assessment/Plan (1) Acute respiratory failure with hypoxia: PLAN: RECOMMENDATIONS: 1. Continue Levaquin as ordered. 2. Continue scheduled bronchodilators and steroids. 3. Continue heated high flow oxygen and wean FiO2 to maintain saturations at or above 90%. 4. Encourage incentive spirometer use and mobilize patient as tolerated. IMPRESSIONS: 1. Acute hypoxemic respiratory failure Likely secondary to COPD with exacerbation precipitated by Legionella pneumonia. The patient's chest imaging did reveal a dense right lower lobe consolidation and the patient did have a positive Legionella urine antigen. The patient remains on appropriate antimicrobial therapy. He will also be continued on scheduled bronchodilator therapy and IV steroids. Plan to wean supplemental oxygen as tolerated to maintain saturations at or above 90%. Encourage incentive spirometer use and mobilize patient as tolerated. 2. Diabetes mellitus/unintentional weight loss/advanced age Complicates care, management, recovery and prognosis. Continue home medications as indicated. This note was generated with [employer]ob[employer] dictation software. It may contain incorrect words, spelling, and punctuation that were not noted in checking the note before signing. Subjective Subjective The patient was seen and examined at the bedside this morning. Events from the last 24 hours have been reviewed. The patient is currently afebrile, hemodynamically stable and maintaining appropriate oxygen saturations on Airvo heated high flow with an FiO2 requirement of 54% and flow rate of 50 L/min. The patient is currently documented to be overall net -1.2 L for the hospital admission. The patient remains on antimicrobials, scheduled bronchodilators and IV steroids. Objective Data Objective Data The patient's most recent lab work, culture data and imaging studies have all been personally reviewed. Legionella antigen was positive on April 11. Vital Signs: Vital Signs Temp Pulse Resp BP Pulse Ox 98.8 F 78 20 H 146/65 H 95 04/14/21 08:00 04/14/21 08:00 04/14/21 08:00 04/14/21 08:00 04/14/21 08:00 Oxygen Flow Rate (L/min) 50 Oxygen Delivery Method Airvo Weight: 62.3 kg Body Mass Index (BMI) 21.4 Intake & Output: Intake and Output for Last 24 Hours 04/12/21 04/13/21 04/14/21 23:59 23:59 23:59 Intake Total 1410 / 1410 150 / 150 900 / 900 Output Total 2225 / 2225 2200 / 2200 1100 / 1100 Balance -815 / -815 -2050 / -2050 -200 / -200 Medical Nutrition Assessment Dietitian: Nutrition Therapy Diagnosis Start: 04/11/21 13:02 Freq: Status: Active Protocol: Document 04/11/21 13:16 HECTOR (Rec: 04/11/21 13:16 [facility] [id number]) Nutrition Malnutrition Evidence of Malnutrition Exists Yes Malnutrition (severe): Acute Illness/Injury Evidenced By Suboptimal Energy Intake ( Moderate),Weight Loss (Severe) ,Physical Changes (Moderate) Clinical Problem Altered Nutrient-Related Laboratory Values Etiology related to DM and steroid administration Signs/Symptoms as evidenced by gluc 250 and A1c=7.2 Status Active Problem Acute Disease or Injury Related Malnutrition Etiology related to acute illness Signs/Symptoms as evidenced by pt with only fair po intake and wt loss of 8.5% in past 2 months and fat /muscle loss (orbital/temporal , clavicle areas) Status Active Problem Recommendation Dietitian Recommendations/Changes Will change diet to Cardiac / Consistent Carbohydrate diet Will continue glucerna shake w / medpass 4x/day Lab / Micro Data Attestation: I reviewed the patient's lab results. Result Diagrams: 04/15/21 05:14 04/13/21 07:50 Labs: Laboratory Results - last 24 hr 04/13/21 11:39: POC Glucose 355 H 04/13/21 17:23: POC Glucose 357 H 04/13/21 21:56: POC Glucose 388 H 04/14/21 05:20: WBC 11.5 H, RBC 3.87 L, Hgb 11.5 L, Hct 34.9 L, MCV 90.2, MCH 29.7, MCHC 33.0, RDW Std Deviation 47.8 H, RDW Coeff of [place] 14.5, Plt Count 267, MPV 11.3, Immature Gran % (Auto) 1.000 H, Neut % (Auto) 90.9 H, Lymph % (Auto) 2.3 L, [place] % (Auto) 5.7, Eos % (Auto) 0.0, Baso % (Auto) 0.1, Absolute Neuts (auto) 10.5 H, Absolute Lymphs (auto) 0.26 L, Nucleated RBC % 0 04/14/21 06:12: POC Glucose 293 H Micro: Microbiology 04/10/21 20:30 Urine, Clean Catch Urine Culture - Final Mixed Gram Positive Organisms 04/11/21 01:30 Urine, Clean Catch Streptococcus pneumoniae Antigen (M - Final 04/11/21 01:30 Urine, Clean Catch Legionella Antigen - Final Legionella Antigen Physical Exam Const alert, oriented x3 and no apparent distress General Appearance: cooperative HEENT normocephalic, head/scalp atraumatic and moist oral mucous membranes Eyes PERRL and EOMs intact bilaterally Neck supple General: trachea midline Resp no use of accessory muscles Effort and Inspection: tachypneic Auscultation: Negative for rales, rhonchi or wheezes Cardio regular rate and regular rhythm GI normal to inspection, nondistended, normoactive bowel sounds Extremity no clubbing, cyanosis or edema Skin no rashes or lesions noted Neuro CN's II-XII intact bilaterally and no focal motor deficits Psych cooperative and affect normal Charges/Coding Visit Charges Inpatient E&M: 91008 Subs Hosp L3
[2021-04-14 11:36] LABS: Bedside Glucose 304 mg/dL (70-110)
[2021-04-14] MEDS: 0.9% Saline Lock 10 ML Syringe IV (14:41)
[2021-04-14 16:35] LABS: Bedside Glucose 255 mg/dL (70-110)
[2021-04-14] MEDS: Atorvastatin Calcium 10 MG Tablet PO (21:07)
[2021-04-14] MEDS: levoFLOXacin IV 750 MG/150 ML BAG 100 MG IV (21:07)
[2021-04-14 21:31] LABS: Bedside Glucose 361 mg/dL (70-110)
[2021-04-15] VITALS (15 sets, daily range): BP systolic 113–137; BP diastolic 55–80; PULSE 82–107; RESP 19–22; TEMP 36.2–36.9; O2SAT 93–96
[2021-04-15 05:34] LABS: Absolute Lymphocyte Count 0.36 X10^3/uL (0.83-4.51); Absolute Neutrophil Count 7.7 X10^3/uL (2.0-7.7); Basophil# 0.02 X10^3/uL; Basophil% 0.2 % (0-1); Hemoglobin 11.5 g/dL (13.0-16.5); Lymphocyte # 0.36 X10^3/ul (0.83-4.51); Lymphocyte % 4.1 % (19-41); Mean Corp Hgb Conc 33.8 g/dL (32-36); Mean Corpuscular Hgb 30.1 pg (27.0-32.0); Mean Platelet Vol. 11.3 fl (6.2-12.0); Monocyte# 0.54 X10^3/uL; Monocyte% 6.2 % (0-10); NRBC Flagged by Analyzer 0 % (0-5); Neutrophil % 87.8 % (47-70); POSITIVE DIFFERENTIAL YES; Platelet Count 296 K/mm3 (150-450); RBC Distribution Width CV 14.8 % (11.6-14.6); RBC Distribution Width SD 48.5 fl (35.1-43.9); Red Blood Count 3.82 M/mm3 (4.6-6.2); White Blood Count 8.8 K/mm3 (4.4-11.0)
[2021-04-15 05:41] LABS: Differential Indicated SCAN CRITERIA MET
[2021-04-15] MEDS: 0.9% Saline Lock 10 ML Syringe IV ×3 (06:29→21:38)
[2021-04-15] MEDS: Insulin Lispro 100 UNIT/ML INSULN.PEN SC ×4 (06:34→21:35)
[2021-04-15 06:45] LABS: Differential Comment SCANNED
[2021-04-15] MEDS: Ipratropium/Albuterol Sulfate 3 ML AMPUL.NEB INHALATION ×5 (06:49→23:46)
[2021-04-15 06:51] LABS: Bedside Glucose 325 mg/dL (70-110)
--- NOTE | 2021-04-15 07:44 | PN.HOSP_ITS ---
Subjective Subjective Patient seen has been weaned off Airvo and currently remains on nasal cannula however he still requires high flow oxygen and is on 8 L with oxygen saturation in the low 90s Objective Data Objective Data Vital Signs: Vital Signs Temp Pulse Resp BP Pulse Ox 97.2 F L 82 20 H 137/80 H 96 04/15/21 04:00 04/15/21 07:00 04/15/21 04:00 04/15/21 04:00 04/15/21 04:00 Oxygen Flow Rate (L/min) 8 Oxygen Delivery Method Nasal Cannula Weight: 62.3 kg Body Mass Index (BMI) 21.4 Intake & Output: Intake and Output for Last 24 Hours 04/13/21 04/14/21 04/15/21 23:59 23:59 23:59 Intake Total 150 / 150 2009 480 / 480 Output Total 2200 / 2200 1525 / 2125 1900 / 1900 Balance -2049 / -0 485 / 125 -1420 / -1420 Medical Nutrition Assessment Dietitian: Nutrition Therapy Diagnosis Start: 04/11/21 13:02 Freq: Status: Active Protocol: Document 04/11/21 13:16 HECTOR (Rec: 04/11/21 13:16 HECTOR [id number]) Nutrition Malnutrition Evidence of Malnutrition Exists Yes Malnutrition (severe): Acute Illness/Injury Evidenced By Suboptimal Energy Intake ( Moderate),Weight Loss (Severe) ,Physical Changes (Moderate) Clinical Problem Altered Nutrient-Related Laboratory Values Etiology related to DM and steroid administration Signs/Symptoms as evidenced by gluc 250 and A1c=7.2 Status Active Problem Acute Disease or Injury Related Malnutrition Etiology related to acute illness Signs/Symptoms as evidenced by pt with only fair po intake and wt loss of 8.5% in past 2 months and fat /muscle loss (orbital/temporal , clavicle areas) Status Active Problem Recommendation Dietitian Recommendations/Changes Will change diet to Cardiac / Consistent Carbohydrate diet Will continue glucerna shake w / medpass 4x/day Lab / Micro Data Result Diagrams: 04/15/21 05:14 04/13/21 07:50 Labs: Laboratory Results - last 24 hr 04/14/21 11:25: POC Glucose 304 H 04/14/21 16:28: POC Glucose 255 H 04/14/21 20:59: POC Glucose 361 H 04/15/21 05:14: WBC 8.8, RBC 3.82 L, Hgb 11.5 L, Hct 34.0 L, MCV 89.0, MCH 30.1, MCHC 33.8, RDW Std Deviation 48.5 H, RDW Coeff of [place] 14.8 H, Plt Count 296, MPV 11.3, Immature Gran % (Auto) 1.700 H, Neut % (Auto) 87.8 H, Lymph % (Auto) 4.1 L , [place] % (Auto) 6.2, Eos % (Auto) 0.0, Baso % (Auto) 0.2, Absolute Neuts (auto) 7.7, Absolute Lymphs (auto) 0.36 L, Nucleated RBC % 0, Differential Comment SCANNED 04/15/21 06:33: POC Glucose 325 H Micro: Microbiology 04/10/21 20:30 Urine, Clean Catch Urine Culture - Final Mixed Gram Positive Organisms 04/11/21 01:30 Urine, Clean Catch Streptococcus pneumoniae Antigen (M - Final 04/11/21 01:30 Urine, Clean Catch Legionella Antigen - Final Legionella Antigen Physical Exam Narrative GENERAL: Remains dyspneic at rest HEENT: Atraumatic; EYES; Anicteric, Normal Conjunctiva NECK; supple, normal thyroid, RESPIRATORY: Diminished to auscultation CARDIOVASCULAR: Regular S1 S2, GI: soft, normoactive bowel sounds, : No Renal angle tenderness; EXTREMITIES: No edema, no clubbing, MUSCULOSKELETAL: no muscle waisting NEURO: Awake; no lateralizing signs. SKIN: No Rash PSYCH; Flat affect Assessment & Plan Assessment/Plan (1) Pneumonia: (2) Acute respiratory failure with hypoxia: PLAN: Patient is a 70-year-old gentleman admitted with generalized aches, fever, shortness of breath and increasing cough. Patient was found to be hypoxic on arrival. Patient urine for Legionella antigen came back positive 1. Acute hypoxic respiratory failure ?Secondary to Legionella pneumonia. Admitted to regular nursing floor managed with noninvasive ventilation via Airvo as well as broad-spectrum antibiotic therapy. Consult was placed to pulmonary medicine -04/13/2021; His breathing still remains labored and patient remains on Airvo -04/14/2021; no significant change in patient's breathing status still remains on Airvo -04/15/2021 patient seen has been weaned off Airvo and currently remains on nasal cannula however he still requires high flow oxygen and is on 8 L with oxygen saturation in the lo 2. Acute Legionella pneumonia ?Management as discussed above 3. COPD ?Patient denies oxygen use at home. Presented with mild exacerbation as a result of above patient managed with bronchodilator treatment, systemic steroids and antibiotics discussed above 4. Hypertension - Blood pressure controlled, home medications continued with dose adjustment as needed 5. Diabetes mellitus type II -patient's oral hypoglycemics held. Placed on long acting insulin, Accu-Cheks a.c. and at bedtime and covered with sliding scale insulin -04/15/2021 patient blood glucose not well controlled adjusted long-acting in sulin doses 6. Dyslipidemia -Patient is on statin therapy, continued at home dose 7. GERD ?Patient is on PPI did continue 8. DVT prophylaxis - On enoxaparin Charges/Coding Visit Charges Inpatient E&M: 89492 Subs Hosp L2
[2021-04-15] MEDS: Glucerna Shake 120 ML LIQUID PO ×4 (09:16→21:35)
[2021-04-15] MEDS: Gabapentin 300 MG Capsule PO ×3 (09:16→17:38)
[2021-04-15] MEDS: guaiFENesin 600 MG Tablet PO ×2 (09:16→21:36)
[2021-04-15] MEDS: Enoxaparin 40 MG/0.4 ML Syringe SC (09:16)
[2021-04-15] MEDS: Pantoprazole Sodium 20 MG Tablet PO ×2 (09:16→21:36)
[2021-04-15] MEDS: Lisinopril 5 MG Tablet PO (09:16)
[2021-04-15 11:21] LABS: Bedside Glucose 412 mg/dL (70-110)
[2021-04-15] MEDS: Insulin Lispro 100 UNIT/ML INSULN.PEN 10 UNIT SC ×2 (12:12→17:37)
[2021-04-15 17:11] LABS: Bedside Glucose 285 mg/dL (70-110)
[2021-04-15] MEDS: Atorvastatin Calcium 10 MG Tablet PO (21:36)
[2021-04-15] MEDS: levoFLOXacin 750 MG Tablet PO (21:36)
[2021-04-15 22:25] LABS: Bedside Glucose 309 mg/dL (70-110)
[2021-04-16] VITALS (10 sets, daily range): BP systolic 114–152; BP diastolic 56–79; PULSE 77–106; RESP 19–26; TEMP 36.6–36.9; O2SAT 88–96
[2021-04-16] MEDS: 0.9% Saline Lock 10 ML Syringe IV (05:38)
[2021-04-16 06:01] LABS: Absolute Lymphocyte Count 0.71 X10^3/uL (0.83-4.51); Absolute Neutrophil Count 7.3 X10^3/uL (2.0-7.7); Basophil# 0.01 X10^3/uL; Basophil% 0.1 % (0-1); Hematocrit 33.4 % (40-54); Hemoglobin 11.3 g/dL (13.0-16.5); Lymphocyte # 0.71 X10^3/ul (0.83-4.51); Lymphocyte % 7.7 % (19-41); Mean Corp Hgb Conc 33.8 g/dL (32-36); Mean Corpuscular Hgb 29.8 pg (27.0-32.0); Mean Corpuscular Volume 88.1 fL (80-94); Mean Platelet Vol. 10.9 fl (6.2-12.0); Monocyte# 0.72 X10^3/uL; Monocyte% 7.9 % (0-10); NRBC Flagged by Analyzer 0 % (0-5); Neutrophil # 7.34 X10^3/uL (2.7-7.7); Platelet Count 366 K/mm3 (150-450); RBC Distribution Width CV 14.9 % (11.6-14.6); RBC Distribution Width SD 48.2 fl (35.1-43.9); Red Blood Count 3.79 M/mm3 (4.6-6.2); White Blood Count 9.2 K/mm3 (4.4-11.0)
[2021-04-16] MEDS: Ipratropium/Albuterol Sulfate 3 ML AMPUL.NEB INHALATION ×2 (07:21→10:27)
--- NOTE | 2021-04-16 07:42 | PCM.PN.HOSP ---
Subjective Subjective Patient seen still remains dyspneic at rest however oxygen requirements overall improving currently down to 5 L nasal cannula Objective Data Objective Data Vital Signs: Vital Signs Temp Pulse Resp BP Pulse Ox 98.4 F 89 21 H 132/65 H 92 04/16/21 03:15 04/16/21 07:22 04/16/21 07:22 04/16/21 03:15 04/16/21 07:22 Oxygen Flow Rate (L/min) 5 Oxygen Delivery Method Nasal Cannula Weight: 62.3 kg Body Mass Index (BMI) 21.4 Intake & Output: Intake and Output for Last 24 Hours 04/14/21 04/15/21 04/16/21 23:59 23:59 23:59 Intake Total 2009 2200 / 2440 360 / 360 Output Total 1525 / 2125 2650 / 3150 1500 / 1500 Balance 485 / 125 -450 / -710 -1140 / -1140 Medical Nutrition Assessment Dietitian: Nutrition Therapy Diagnosis Start: 04/11/21 13:02 Freq: Status: Active Protocol: Document 04/11/21 13:16 HECTOR (Rec: 04/11/21 13:16 HECTOR [id number]) Nutrition Malnutrition Evidence of Malnutrition Exists Yes Malnutrition (severe): Acute Illness/Injury Evidenced By Suboptimal Energy Intake ( Moderate),Weight Loss (Severe) ,Physical Changes (Moderate) Clinical Problem Altered Nutrient-Related Laboratory Values Etiology related to DM and steroid administration Signs/Symptoms as evidenced by gluc 250 and A1c=7.2 Status Active Problem Acute Disease or Injury Related Malnutrition Etiology related to acute illness Signs/Symptoms as evidenced by pt with only fair po intake and wt loss of 8.5% in past 2 months and fat /muscle loss (orbital/temporal , clavicle areas) Status Active Problem Recommendation Dietitian Recommendations/Changes Will change diet to Cardiac / Consistent Carbohydrate diet Will continue glucerna shake w / medpass 4x/day Lab / Micro Data Result Diagrams: 04/16/21 05:50 04/13/21 07:50 Labs: Laboratory Results - last 24 hr 04/15/21 11:11: POC Glucose 412 H 04/15/21 16:54: POC Glucose 285 H 04/15/21 21:34: POC Glucose 309 H 04/16/21 05:50: WBC 9.2, RBC 3.79 L, Hgb 11.3 L, Hct 33.4 L, MCV 88.1, MCH 29.8, MCHC 33.8, RDW Std Deviation 48.2 H, RDW Coeff of [place] 14.9 H, Plt Count 366, MPV 10.9, Immature Gran % (Auto) 4.300 H, Neut % (Auto) 80.0 H, Lymph % (Auto) 7.7 L, [place] % (Auto) 7.9, Eos % (Auto) 0.0, Baso % (Auto) 0.1, Absolute Neuts (auto) 7.3, Absolute Lymphs (auto) 0.71 L, Nucleated RBC % 0 Micro: Microbiology 04/10/21 14:50 Blood Culture (Wb) - Right Forearm Blood Culture - Final No growth in 5 days. 04/10/21 14:30 Blood Culture (Wb) - Anticubital Left Blood Culture - Final No growth in 5 days. 04/10/21 20:30 Urine, Clean Catch Urine Culture - Final Mixed Gram Positive Organisms 04/11/21 01:30 Urine, Clean Catch Streptococcus pneumoniae Antigen (M - Final 04/11/21 01:30 Urine, Clean Catch Legionella Antigen - Final Legionella Antigen Physical Exam Narrative GENERAL: Remains dyspneic at rest HEENT: Atraumatic; EYES; Anicteric, Normal Conjunctiva NECK; supple, normal thyroid, RESPIRATORY: Diminished to auscultation CARDIOVASCULAR: Regular S1 S2, GI: soft, normoactive bowel sounds, : No Renal angle tenderness; EXTREMITIES: No edema, no clubbing, MUSCULOSKELETAL: no muscle waisting NEURO: Awake; no lateralizing signs. SKIN: No Rash PSYCH; Flat affect Assessment & Plan Assessment/Plan (1) Pneumonia: (2) Acute respiratory failure with hypoxia: PLAN: Patient is a 70-year-old gentleman admitted with generalized aches, fever, shortness of breath and increasing cough. Patient was found to be hypoxic on arrival. Patient urine for Legionella antigen came back positive 1. Acute hypoxic respiratory failure ?Secondary to Legionella pneumonia. Admitted to regular nursing floor managed with noninvasive ventilation via Airvo as well as broad-spectrum antibiotic therapy. Consult was placed to pulmonary medicine -04/13/2021; His breathing still remains labored and patient remains on Airvo -04/14/2021; no significant change in patient's breathing status still remains on Airvo -04/15/2021 patient seen has been weaned off Airvo and currently remains on nasal cannula however he still requires high flow oxygen and is on 8 L with oxygen saturation in the low 90s -04/16/2021 patient seen still remains dyspneic at rest however oxygen requirements overall improving currently down to 5 L nasal cannula 2. Acute Legionella pneumonia ?Management as discussed above 3. COPD ?Patient denies oxygen use at home. Presented with mild exacerbation as a result of above patient managed with bronchodilator treatment, systemic steroids and antibiotics discussed above 4. Hypertension - Blood pressure controlled, home medications continued with dose adjustment as needed 5. Diabetes mellitus type II -patient's oral hypoglycemics held. Placed on long acting insulin, Accu-Cheks a.c. and at bedtime and covered with sliding scale insulin -04/15/2021 patient blood glucose not well controlled adjusted long-acting insulin doses 6. Dyslipidemia -Patient is on statin therapy, continued at home dose 7. GERD ?Patient is on PPI did continue 8. DVT prophylaxis - On enoxaparin Charges/Coding Visit Charges Inpatient E&M: 45084 [facility] Hosp L2
[2021-04-16] MEDS: Gabapentin 300 MG Capsule PO ×2 (08:13→12:46)
[2021-04-16] MEDS: Pantoprazole Sodium 20 MG Tablet PO (08:13)
[2021-04-16] MEDS: Enoxaparin 40 MG/0.4 ML Syringe SC (08:13)
[2021-04-16] MEDS: Lisinopril 5 MG Tablet PO (08:13)
[2021-04-16] MEDS: guaiFENesin 600 MG Tablet PO (08:13)
[2021-04-16] MEDS: Glucerna Shake 120 ML LIQUID PO (08:13)
[2021-04-16] MEDS: Insulin Lispro 100 UNIT/ML INSULN.PEN 10 UNIT SC ×2 (08:14→12:45)
[2021-04-16 08:15] LABS: Bedside Glucose 226 mg/dL (70-110)
[2021-04-16] MEDS: Insulin Lispro 100 UNIT/ML INSULN.PEN SC ×2 (08:15→12:45)
--- NOTE | 2021-04-16 11:14 | DS.PCM_ITS ---
Providers Date of Admission: 04/10/21 Primary Care Physician: [facility] Consultations 04/11/21 01:32 Consult: Cleaner / Pulmonary Medicine Routine Consulting Provider: Pulmonary Medicine rodrigo Garland Reason for Consult: pneumonia EMERGENT Consult: No MD Notified: Yes Date Notified: 04/11/21 Time Notified: 06:10 Method of Notification: Text Method of Consult:: In-Person Reason For Visit: COMMUNITY ACQUIRED PNEUMONIA Diagnosis Discharge Diagnosis (1) Pneumonia: Status: Acute Code(s): J18.9 - Pneumonia, unspecified organism (2) Acute respiratory failure with hypoxia: Status: Acute Code(s): J96.01 - Acute respiratory failure with hypoxia Medications at Discharge Home Medications albuterol sulfate [Proventil HFA] 6.7 g IH 4X/DAY PRN 01/04/17 atorvastatin 10 mg PO QHS 01/04/17 budesonide-formoterol [Symbicort] 6 g IH BID 01/04/17 gabapentin 300 mg PO TIDCM 01/04/17 hydrocodone-acetaminophen 1 tab PO Q6H PRN PRN #16 tablet 01/04/17 lisinopril 5 mg PO DAILY 01/04/17 metformin 500 mg PO QHS 01/04/17 omeprazole 20 mg PO BID 01/04/17 guaifenesin [Mucus Relief ER] 600 mg PO BID #14 tab 04/16/21 insulin glargine [Basaglar KwikPen U-100 Insulin] 25 unit SUBCUT QHS #15 ml 04/16/21 levofloxacin 750 mg PO QHS #5 tab 04/16/21 prednisone 20 mg PO BID #10 tab 04/16/21 Hospital Course Summary of Care Provided Minutes Spent on Discharge: 45 Hospital Course: Patient is a 70-year-old gentleman admitted with generalized aches, fever, shortness of breath and increasing cough. Patient was found to be hypoxic on arrival. Patient urine for Legionella antigen came back positive 1. Acute hypoxic respiratory failure ?Secondary to Legionella pneumonia. Admitted to regular nursing floor managed with noninvasive ventilation via Airvo as well as broad-spectrum antibiotic therapy. Consult was placed to pulmonary medicine -04/13/2021; His breathing still remains labored and patient remains on Airvo -04/14/2021; no significant change in patient's breathing status still remains on Airvo -04/15/2021 patient seen has been weaned off Airvo and currently remains on nasal cannula however he still requires high flow oxygen and is on 8 L with oxygen saturation in the low 90s -04/16/2021 patient seen still remains dyspneic at rest however oxygen requireme nts overall improving currently down to 5 L nasal cannula -Patient was assessed for home oxygen prior to discharge he did qualify he will require 3 L continuous on discharge. Patient will need portability since he is active both in the community as well as at home 2. Acute Legionella pneumonia ?Management as discussed above 3. COPD ?Patient denies oxygen use at home. Presented with mild exacerbation as a result of above patient managed with bronchodilator treatment, systemic steroids and antibiotics discussed above 4. Hypertension - Blood pressure controlled, home medications continued with dose adjustment as needed 5. Diabetes mellitus type II -patient's oral hypoglycemics held. Placed on long acting insulin, Accu-Cheks a.c. and at bedtime and covered with sliding scale insulin -04/15/2021 patient blood glucose not well controlled adjusted long-acting insulin doses 6. Dyslipidemia -Patient is on statin therapy, continued at home dose 7. GERD ?Patient is on PPI did continue 8. DVT prophylaxis - On enoxaparin Physical Exam Narrative GENERAL: cooperative HEENT: Atraumatic; EYES; Anicteric, Normal Conjunctiva NECK; supple, normal thyroid, RESPIRATORY: Diminished to auscultation CARDIOVASCULAR: Regular S1 S2, GI: soft, normoactive bowel sounds, : No Renal angle tenderness; EXTREMITIES: No edema, no clubbing, MUSCULOSKELETAL: no muscle waisting NEURO: Awake; no lateralizing signs. SKIN: No Rash PSYCH; Flat affect Medical Records Data Medical Nutrition Assessment Dietitian: Nutrition Therapy Diagnosis Start: 04/11/21 13:02 Freq: Status: Active Protocol: Document 04/11/21 13:16 HECTOR (Rec: 04/11/21 13:16 HECTOR [id number]) Nutrition Malnutrition Evidence of Malnutrition Exists Yes Malnutrition (severe): Acute Illness/Injury Evidenced By Suboptimal Energy Intake ( Moderate),Weight Loss (Severe) ,Physical Changes (Moderate) Clinical Problem Altered Nutrient-Related Laboratory Values Etiology related to DM and steroid administration Signs/Symptoms as evidenced by gluc 250 and A1c=7.2 Status Active Problem Acute Disease or Injury Related Malnutrition Etiology related to acute illness Signs/Symptoms as evidenced by pt with only fair po intake and wt loss of 8.5% in past 2 months and fat /muscle loss (orbital/temporal , clavicle areas) Status Active Problem Recommendation Dietitian Recommendations/Changes Will change diet to Cardiac / Consistent Carbohydrate diet Will continue glucerna shake w / medpass 4x/day Weight / BMI Weight Weight: 62.3 kg Body Mass Index (BMI) 21.4 ABG / Lab / Microbiology Data Result Diagrams: 04/16/21 05:50 04/13/21 07:50 Laboratory: Laboratory Results - last 24 hr 04/15/21 11:11: POC Glucose 412 H 04/15/21 16:54: POC Glucose 285 H 04/15/21 21:34: POC Glucose 309 H 04/16/21 05:50: WBC 9.2, RBC 3.79 L, Hgb 11.3 L, Hct 33.4 L, MCV 88.1, MCH 29.8, MCHC 33.8, RDW Std Deviation 48.2 H, RDW Coeff of [place] 14.9 H, Plt Count 366, MPV 10.9, Immature Gran % (Auto) 4.300 H, Neut % (Auto) 80.0 H, Lymph % (Auto) 7.7 L , [place] % (Auto) 7.9, Eos % (Auto) 0.0, Baso % (Auto) 0.1, Absolute Neuts (auto) 7.3, Absolute Lymphs (auto) 0.71 L, Nucleated RBC % 0 04/16/21 08:05: POC Glucose 226 H Microbiology: Microbiology 04/10/21 14:50 Blood Culture (Wb) - Right Forearm Blood Culture - Final No growth in 5 days. 04/10/21 14:30 Blood Culture (Wb) - Anticubital Left Blood Culture - Final No growth in 5 days. 04/10/21 20:30 Urine, Clean Catch Urine Culture - Final Mixed Gram Positive Organisms 04/11/21 01:30 Urine, Clean Catch Streptococcus pneumoniae Antigen (M - Final 04/11/21 01:30 Urine, Clean Catch Legionella Antigen - Final Legionella Antigen D/C Instructions Discharge Diet: 1800 Calorie Control Diet Discharge Activity: May Not Drive (May not drive while taking narcotics) Call your doctor if you observe: Fever of 101 or Higher, Shortness of breath, Fainting spells and Chest pain Meaningful Use Info Meaningful Use Diagnoses (Choose all that apply): None applicable Discharge Plan Admission Admit Date/Time: 04/10/21 19:31 Primary Reason for Your Visit: Legionella pneumonia Attending Provider: Julius Haynes Primary Care Provider: [facility],[place] Consulting Providers: Baltazar Guillen ; Ernst Luevano ; Magdalene Bran CLERK TO JUSTICE Discharge Orders/Prescriptions Prescriptions: New levofloxacin 750 mg Tablet 750 mg PO QHS Qty: 5 RF: 0 guaifenesin [Mucus Relief ER] 600 mg Tablet Extended Release 12hr 600 mg PO BID Qty: 14 RF: 0 Basaglar KwikPen U-100 Insulin 100 unit/mL (3 mL) insulin pen 25 unit subcut QHS Qty: 15 RF: 0 prednisone 20 mg tablet 20 mg PO BID Qty: 10 RF: 0 Continued atorvastatin 10 MG tablet 10 mg PO QHS RF: 0 gabapentin 300 MG capsule 300 mg PO TIDCM RF: 0 omeprazole 20 MG capsule 20 mg PO BID RF: 0 lisinopril 5 MG tablet 5 mg PO DAILY RF: 0 albuterol sulfate [Proventil HFA] 6.7 GM HFA aerosol inhaler 6.7 g IH 4X/DAY PRN (Reason: Sob &/Or Wheezing) RF: 0 metformin 500 MG tablet,ER rosa.retention 24 hr 500 mg PO QHS RF: 0 budesonide-formoterol [Symbicort] 6 GM HFA aerosol inhaler 6 g IH BID RF: 0 hydrocodone-acetaminophen 1 TABLET tablet 1 tab PO Q6H PRN PRN (Reason: Pain) Qty: 16 RF: 0 Discontinued hydrocodone-acetaminophen [hydrocodone-acetaminophen] 1 TABLET tablet 1 tab PO Q6H PRN PRN (Reason: Pain) 3 Days Qty: 10 RF: 0 Referrals / Follow Up: [facility],[place] [Primary Care Provider] - Within 2 Weeks Disposition Disposition (needs filled in before D/C Order can be placed): Home, Self Care Charges/Coding Visit Charges Inpatient E&M: 82110 Disch Hosp
--- NOTE | 2021-04-16 11:17 | CASEMGMT ---
This RN CM to room to discuss d/c plan with pt. Pt is unsure of need for therapy at home and would like to see once he gets home. Pt aware to call PCP, if he decides he needs therapy once home. Pt states is not homebound. Pt states he would like [employer] for DME provider as his had them in the past. Per Amy BARNETT, pt qualified for 3L w/ exertion home oxygen. Referral faxed to [facility] and [facility] notified of referral and pt discharge, voice understanding. Pt voices no further questions/concerns/needs. Jamir BARNETT CM
[2021-04-16 12:46] LABS: Bedside Glucose 199 mg/dL (70-110)
--- NOTE | 2021-04-16 15:24 | PHA.DC.MC ---
Pharmacy Service has performed discharge medication reconciliation and counseling for this patient. 1. LEVOFLOXACIN 750MG PO DAILY X 5 DAYS 2. GUAIFENESIN 600MG PO BID X 7 DAYS 3. INSULIN GLARGINE 25UNITS SC QHS 4. PREDNISONE 20MG PO BID X 5 DAYS The patient's discharge medication list was reviewed for discrepancies and discrepancies were resolved. Patient told this [facility] he has testing supplies at home. A written order was placed in the chart for pen needles. Home Medications albuterol sulfate [Proventil HFA] 6.7 g IH 4X/DAY PRN 01/04/17 atorvastatin 10 mg PO QHS 01/04/17 budesonide-formoterol [Symbicort] 6 g IH BID 01/04/17 gabapentin 300 mg PO TIDCM 01/04/17 hydrocodone-acetaminophen 1 tab PO Q6H PRN PRN #16 tablet 01/04/17 lisinopril 5 mg PO DAILY 01/04/17 metformin 500 mg PO QHS 01/04/17 omeprazole 20 mg PO BID 01/04/17 guaifenesin [Mucus Relief ER] 600 mg PO BID #14 tab 04/16/21 insulin glargine [Basaglar KwikPen U-100 Insulin] 25 unit SUBCUT QHS #15 ml 04/16/21 levofloxacin 750 mg PO QHS #5 tab 04/16/21 prednisone 20 mg PO BID #10 tab 04/16/21 The patient was counseled on the following discharge medications and changes in medications for homegoing were reviewed. The Reason for Use, instructions for use, and potential side effects were reviewed for all new medications. The patient's questions regarding all of their medications were answered. The patient was able to verbally demonstrate an understanding of their discharge medications.
--- NOTE | 2021-04-19 14:30 | CASEMGMT ---
RN CM Discharge Follow-up Phone Call: JOE: 11 Strata: 3 Call Date: 04/19/21 Discharge Date: 04/16/21 Time of Call: 1430 Duration: 1 min Admitting Diagnosis: Community Acquired PNA RN CM attempted to complete follow-up phone call after recent hospitalization. No answer, voice message left with return contact information.
== END 2021-04-16 15:24 | disposition home or self-care (01) | DRG 177 ==
LOC: ED 18:39 → PCU 19:46
PROVIDERS: Internal Medicine; Admitting Provider Internal Medicine; Emergency Provider Student in an Organized Health Care Education/Training Program; Visit Provider Internal Medicine
DX: A48.1 Legionnaires' disease (principal); J96.01 Acute respiratory failure with hypoxia; J44.0 Chronic obstructive pulmonary disease with (acute) lower respiratory infection; E87.1 Hypo-osmolality and hyponatremia; J44.1 Chronic obstructive pulmonary disease with (acute) exacerbation; I10 Essential (primary) hypertension; E11.9 Type 2 diabetes mellitus without complications; E78.5 Hyperlipidemia, unspecified; K21.9 Gastro-esophageal reflux disease without esophagitis; Z79.51 Long term (current) use of inhaled steroids; Z79.84 Long term (current) use of oral hypoglycemic drugs; Z79.899 Other long term (current) drug therapy; F17.210 Nicotine dependence, cigarettes, uncomplicated; R63.4 Abnormal weight loss; D64.9 Anemia, unspecified; R74.01 Elevation of levels of liver transaminase levels; E86.0 Dehydration
CPT/HCPCS: 36415; 36600; 71045; 71275; 80048; 80053; 81001; 82803; 82962; 83036; 83605; 83735; 83880; 83930; 83935; 84300; 84450; 84484; 85025; 85379; 85610; 85730; 87040; 87086; 87088; 87449; 87635; 93005; 94003; 94640; 94660; 94667; 94668; 94762; 97162; 97166; 97530; 97535; 97802; 99251; 99285; 99406; J7030; Q9967; U0005; A4216; G0463; U0003

== ENCOUNTER 2023-05-05 07:33 | Day surgery (SDC) | payer OTHER, SELFPAY ==
[2023-05-05] VITALS (8 sets, daily range): BP systolic 80–129; BP diastolic 43–83; PULSE 63–98; RESP 16–18; TEMP 36.4–36.7; O2SAT 94–99; BMI 21.9
--- NOTE | 2023-05-05 | GASB_PTH ---
PATIENT: YULIYA GALARZA LOC: [facility] U#:[id number] AGE/SX: 72/M ROOM: RE05/05/[address]: Dr. Tyrell Krishnamurthy MD : 1950 BED: DIS: 05/05/2023 SPEC #: [id number] RECD: 05/05/23 17:09 STATUS: DEWAYNE SUSAN #: [id number] SERENA: 05/05/23 00:[address]: Tyrell Krishnamurthy DEPT: SURGICAL PATHOLOGY RECD BY: Remi Echols ENTERED: 05/09/23 09:51 SP TYPE: Gastric Bx OTHR DR: [facility] Tissues: A - Duodenum, NOS B - Gastric mucous membrane C - Gastric mucous membrane D - Esophageal mucous membrane E - Cecum, NOS F - Sigmoid colon biopsy Procedures: Special Stain Group II Surgery Specimen Level IV Alcian Blue/PAS (control) HEADER OPERATION: Colonoscopy, EGD, biopsy PRE-OP DIAGNOSIS: History of colonic polyps, GERD TISSUE SUBMITTED: A - Duodenal polyp biopsy, B - Antrum biopsy for histo and H. pylori, C - Z-line biopsy, D - Distal esophagus nodule biopsy, E - Sessile polyp cecum biopsy, F - Distal sigmoid polyp biopsy MICROSCOPIC DIAGNOSIS A. Duodenal polyp, biopsy: Tubular adenoma. Gastric metaplasia. B. Gastric antrum, biopsy: Mild chronic gastritis. See comment. C. Z-line, biopsy: Gastroesophageal junctional mucosa with mild chronic inflammation. Changes of reflux. No evidence of goblet cell metaplasia. See comment. D. Distal esophagus nodule, biopsy: Fragments of benign squamous and gastric glandular mucosa with vascular ectasia and focal intraepithelial hemorrhage. No evidence of goblet cell metaplasia. See comment. E. Cecal polyp, biopsy: Fragments of tubular adenoma. F. Distal sigmoid colon polyp, biopsy: Polypoid fragments of benign colonic mucosa. See comment. AM:chetna 05/10/2023 COMMENT B. The results of immunohistochemistry for Helicobacter pylori will be reported separately ([id number]). C & D. Alcian blue/PAS stain with matched control supports the above diagnosis. E. Neither hyperplastic nor adenomatous change is identified. Clinical correlation is suggested. MICROSCOPIC DESCRIPTION Slides are reviewed. GROSS DESCRIPTION A - Received in fixative is one container labeled with the patient's name and designated duodenal polyp biopsy. The specimen consists of two irregular fragments of light paredes soft tissue that in aggregate measure 0.4 x 0.2 x 0.1 cm. The specimen is totally submitted in one cassette. B - Received in fixative is one container labeled with the patient's name and designated antrum biopsy. The specimen consists of multiple irregular fragments of light paredes soft tissue that in aggregate measure 0.5 x 0.5 x 0.1 cm. The specimen is totally submitted in one cassette. C - Received in fixative is one container labeled with the patient's name and designated Z-line biopsy. The specimen consists of multiple irregular fragments of light paredes soft tissue that in aggregate measure 0.3 x 0.2 x 0.1 cm. The specimen is totally submitted in one cassette. D - Received in fixative is one container labeled with the patient's name and designated distal esophagus nodule biopsy. The specimen consists of multiple irregular fragments of light paredes soft tissue that in aggregate measure 1.0 x 0.3 x 0.1 cm. The specimen is totally submitted in one cassette. E - Received in fixative is one container labeled with the patient's name and designated sessile polyp cecum biopsy. The specimen consists of two irregular fragments of light paredes soft tissue that in aggregate measure 0.4 x 0.3 x 0.1 cm. The specimen is totally submitted in one cassette. F - Received in fixative is one container labeled with the patient's name and designated distal sigmoid polyp biopsy. The specimen consists of two irregular fragments of light paredes soft tissue that in aggregate measure 0.4 x 0.3 x 0.1 cm. The specimen is totally submitted in one cassette. / SJ:rg 05/09/2023 TC:3 CPT: 85139 x6, 31974 x2
[2023-05-05] MEDS: Lactated Ringers 1,000 ML 15 ML IV (08:27)
[2023-05-05] MEDS: Ipratropium/Albuterol Sulfate 3 ML AMPUL.NEB INHALATION (08:33)
[2023-05-05 08:45] LABS: Bedside Glucose 169 mg/dL (74-106)
--- NOTE | 2023-05-05 09:00 | IMM_PTH ---
PATIENT: YULIYA GALARZA LOC: [facility] U#:[id number] AGE/SX: 72/M ROOM: RE05/05/[address]: Dr. Tyrell Krishnamurthy MD : 1950 BED: DIS: 05/05/2023 SPEC #: [id number] RECD: 05/09/23 12:24 STATUS: DEWAYNE SUSAN #: [id number] SERENA: 05/05/23 09:[address]: Tyrell Krishnamurthy DEPT: IMMUNOHISTOCHEMISTRY RECD BY: Kayla Crane ENTERED: 05/09/23 12:25 SP TYPE: IMMUNO OTHR DR: [facility] Tissues: B - Stomach, NOS Procedures: H Pylori (initial) PHYSICIAN & INSTITUTION [place] [address] SPECIMEN INFORMATION: Tissue Source: B - Antrum biopsy Clinical Info: History of colonic polyps, GERD Specimen Number: [id number] CPT code: 78874 METHODOLOGY: Deparaffinized sections of prefer/formalin-fixed tissue or PAP/DQ stained slides are incubated with monoclonal/polyclonal antibodies/oligonucleotide probes. Localization is made via biotin free immunoperoxidase method. Appropriate controls are performed and reacted as expected. Results on target cell population are indicated in the following table: RESULTS: ANTIBODY / CLONE RESULT Block B H Pylori (polyclonal) negative These tests were developed and their performance characteristics determined by [facility]. They may not have been cleared or approved by the U.S. Food and Drug Administration. The FDA has determined that such clearance or approval is not necessary. The above immunohistochemical/dualISH markers are ordered and reviewed by the Pathologist. INTERPRETATION: B. Antrum, biopsy: Negative for Helicobacter pylori organisms. AM:chetna 05/10/2023
--- NOTE | 2023-05-05 09:33 | NURSING ---
this nurse went to talk with pt about transportation policy and that pt will need a responsible person to go home with him on hospital transport- pt says he doesn't have anyone but he lives with his brother and he will be there when he gets home. discussed with pt about the safety reasons for why the patient needs an escort for his ride home- the pt says that when he called about transport to the hospital they told him that but he doesn't have anyone- he sister in law will be very mad if she has to come get him and she lives in [place] - attempted to discuss with pt why this is our policy and he becomes increasingly angry and agitated. dr howell hears pt yelling and comes in to talk with pt- pt cont to be upset - went into [facility] and talked with dr howell about what the situation is with the pt and our hospital poicy- he than talks with pt about the reasons why he needs an escort but if this isn't an option and if the brother is at home he wants to make sure there is someone there to be with him. dr howell had the pt call his brother and talk with him to make sure he is home when the pt gets home and the reasons why this is our policy for the pt safety. dr howell is agreeable to let the pt go home with hospital transport without escort and pt was made aware of the risks of this. hospital transport called and given info about the plan for the pt to go home. they understand and agree with the decision.
--- NOTE | 2023-05-05 10:33 | HP.PCM_ITS ---
History and Physical Date of Service: 04/05/23 MR#: [id number] Acct: [id number] Name: YULIYA GALARZA Rep #: [id number] : 1950 Provider: Dr. Tyrell Krishnamurthy MD Age/Sex: 72/M Location: [facility] Status: Signed Intake Vital Signs 04/11/2113:02 04/05/2308:55 Height 5 ft 7 in 5 ft 7 in Weight: 148 lb BMI 23.1 BP 147/77 H Blood Pressure Location Rt brachial Position Sitting Respiration 17 Pulse 89 Pulse Source Monitor Temp 97.3 F L Temp Source Temporal Intake Visit Reasons: COLONOSCOPY Chief Complaint: consult Allergies No Known Allergies Allergy (Verified 04/05/23 08:56) Medications albuterol sulfate 90 mcg/actuation aerosol inhaler (Proventil HFA) 6.7 g IH 4X/DAY PRN Sob &/Or Wheezing 01/04/17 [History Confirmed 04/05/23] atorvastatin 10 mg tablet 10 mg PO QHS cholesterol 01/04/17 [History Confirmed 04/05/23] budesonide-formoterol HFA 160 mcg-4.5 mcg/actuation aerosol inhaler (Symbicort) 6 g IH BID breathing 01/04/17 [History Confirmed 04/05/23] gabapentin 300 mg capsule 300 mg PO TIDCM nerve pain 01/04/17 [History Confirmed 04/05/23] hydrocodone-acetaminophen 5-325mg 5mg-325mg 1 tab PO Q6H PRN PRN Pain #16 TABLETS 01/04/17 [Rx Confirmed 04/05/23] lisinopril 5 mg tablet 5 mg PO DAILY blood pressure 01/04/17 [History Confirmed 04/05/23] metformin 500 mg 24 hr tablet,extended release 500 mg PO QHS diabetes 01/04/17 [History Confirmed 04/05/23] omeprazole 20 mg capsule,delayed release 20 mg PO BID reflux 01/04/17 [History Confirmed 04/05/23] guaifenesin 600 mg tablet, extended release 12 hr (Mucus Relief ER) 600 mg PO BID #14 tabs 04/16/21 [Rx Confirmed 04/05/23] insulin glargine 100 unit/mL (3 mL) subcutaneous pen (Basaglar KwikPen U-100 Insulin) 25 unit (0.25 mL) subcut QHS #15 mL 04/16/21 [Rx Confirmed 04/05/23] levofloxacin 750 mg tablet 750 mg PO QHS #5 tabs 04/16/21 [Rx Confirmed 04/05/23] prednisone 20 mg tablet 20 mg PO BID #10 tabs 04/16/21 [Rx Confirmed 04/05/23] PFSH Medical History (Updated 04/05/23 @ 12:[address] Tyrell Krishnamurthy MD) Diabetes Hypercholesterolemia Hypertension Surgical History History of back surgery Social History Smoking Status: Current every day smoker tobacco type: cigarettes HPI HPI HPI: Patient is a 72-year-old male who presents for need to schedule surveillance colonoscopy secondary to a history of colonic polyps. They are referred for surgical consultation from G[facility] of the [facility]. I was notified by nursing prior to my arrival to the room that patient had both defecated and urinated on himself and had reportedly expected to undergo his procedure today so he had taken his prescribed bowel prep. On my arrival to the room Mr. Galarza reports frustration why he was not informed that he would not be undergoing the procedure this morning. Patient has had prior colonoscopy. This was performed and 2020 with findings of 1 tubulovillous adenoma of the cecum and tubular adenomas of both the ascending and descending colon. 3-year follow-up was recommended. Patient has no personal history of inflammatory bowel disease or diverticulitis. They describe their bowel habits as normal and denies any constipation or diarrhea. They have approximately 2-3 per day and spend minimal time on the toilet without significant straining. They have not noticed recent bleeding or dark stools. There was some report of a occult blood positive stool in patient's referral paperwork, however, Mr. Galarza denies being even aware of this result. He confirms some recent fatigue but denies any lightheadedness. They do not regularly take fiber supplements. They deny history of hemorrhoids. Patient has no family history of colon cancer, inflammatory bowel disease or diverticulitis. The patient is not prescribed anticoagulants/blood thinners. Relevant prior abdominal surgical history includes: Open appendectomy done remotely Patient has a past significant history of GERD and heartburn. He states that his symptoms were primarily centered on reflux. He was previously on omeprazole, but is no longer taking this medication. ROS General General: Yes fatigue; No weight change, appetite, colon cancer, breast cancer or weakness HEENT HEENT: Yes difficulty swallowing; No eye injury, eye surgery, swollen glands or hoarseness Endo Endocrine: Yes diabetes mellitus; No thyroid disease, thyroid cancer, Hair loss, heat intolerance or cold intolerance Skin Skin: No rash or changing moles Breast Breast: No left breast lump, right breast lump, nipple discharge, breast pain, abnormal mammogram, abnormal US or breast enlargement Musc Musculoskeletal: No back problems, arthritis, rheumatoid arthritis, gout or joint pain Cardio Cardiovascular: No murmur, pacemaker, heart disease, atrial fibrillation, high blood pressure, heart attack, heart stent, palpitations, shortness of breat with exertion or chest pain Psych Psychiatric: No depression, anxiety or hearing voices Resp Respiratory: No shortness of breath, No sleep apnea, No cough, No COPD, No asthma, No emphysema and No wheezing Gastro Gastrointestinal: No abdominal pain, Yes nausea or vomiting, Yes diarrhea, No c onstipation, No blood in stool, No acid reflux, No hemorrhoids, No ulcers, No gallbladder problem and No black,tarry stools Marco Hematologic: No blood thinners, No blood disorders, No bleeding, No anemia and No blood clots Neuro Neurologic: No system reviewed and no additional complaints, except as documented, No as per HPI, No abnormal gait, No abnormal hearing, No abnormal movements, No abnormal speech, No behavioral changes, No burning sensations, No confusion, No convulsions, No disequilibrium, No dizziness, No localized weakness, No frequent falls, No headache(s), No lack of coordination, No loss of vision, No memory loss, No numbness, No other visual disturbances, No radicular pain, No restless legs, No sensory deficit, No syncope, No tingling, No tremor(s), No weakness and No other Exam Const Other: Agitated and short tempered. Patient has visibly soiled himself Resp Effort & Inspection: normal respiratory effort GI Other: Well-healed right lower quadrant appendectomy incision. Soft and nondistended. Mild tenderness with palpation of the left lower abdominal quadrant, otherwise nontender to palpation. Assessment and Plan Assessment and Plan (1) Personal history of colonic polyps: Status: Acute Comment: This is a 72-year-old male with a history of adenomatous polyps on prior colonoscopy. His last colonoscopy in 2019 identified a tubulovillous adenoma of the cecum as well as tubular adenomas of the ascending and descending colon. He denies any current GI complaints and simply follows up for surveillance. Unfortunately there is some confusion as to when his procedure would actually take place and he completed a prep in anticipation of the procedure this morning. He is very irritable to hear that he will not be undergoing a procedure this morning. I have tried to apologize for this confusion and clarify expectations going forward. He is informed that he will require a trailer truck driver the day of his procedure given the use of sedation. I will also discussed expectations around any biopsies that are performed. He does express understanding of this information and states that [facility] as he does not have any close family or friends. From my standpoint he is okay to be reissued a MoviPrep or we can simply proceed with our MiraLAX/Dulcolax split prep. Plan: Plan will be to complete colonoscopy on first mutually available date under local MAC. Pre-procedure prep discussed and paper instructions provided. (Patient may also opt for reissue of MoviPrep per [facility]) patient is also made aware that he will need to have a trailer truck driver with him the day of the procedure. (2) Hx of gastroesophageal reflux (GERD): Status: Acute Comment: This is a male with a lifelong history of tobacco use and prior significant history of reflux who has never been screened for Yates's esophagus. Therefore according to screening recommendations from the [employer] I have offered him screening for Yates's esophagus with a concurrent EGD. Mr. Galarza expresses an interest in this procedure so we will plan, tentatively, for EGD along with surveillance colonoscopy as discussed above. Plan: EGD for Yates's screening along with surveillance colonoscopy under sedation I have examined the patient and the H&P has been reviewed. There are no clinical changes since date of exam. Unfortunately there was some miscommunication and patient was informed that he would not need a trailer truck driver if he secured hospital transportation. He informs us today that his brother is at the house where he will return, but that he is his brother source of transportation. When we informed him that this was not in accordance with hospital policy patient became agitated and began raising his voice as well as becoming verbally aggressive. I attempted to diffuse the situation by informing him that we were merely looking out for his safety. I requested a call to his brother to confirm that he would indeed be at home. I spoke with patient's brother myself and made this confirmation. I shared with brother my concerns and he assured me that he would keep a close watch over his brother returning from the procedure. Given this assurance and that the patient has completed a prep for today's procedure we will proceed as scheduled.
--- NOTE | 2023-05-05 11:48 | OP.EGD_ITS ---
Patient Name: Mele Esparza Procedure Date: 05/05/2023 10:41 AM Date of : 1950 Age: 72 Procedure: Upper GI endoscopy Indications: Screening for Yates's esophagus in patient at risk for this condition, Esophageal reflux Providers: Tyrell Krishnamurthy MD Referring MD: [facility] Medicines: See the Anesthesia note for documentation of the administered medications Patient Profile: Refer to note in patient chart for documentation of history and physical. Complications: No immediate complications. Estimated blood loss: Minimal. Procedure: Pre-Anesthesia Assessment: - The heart rate, respiratory rate, oxygen saturations, blood pressure, adequacy of pulmonary ventilation, and response to care were monitored throughout the procedure. After obtaining informed consent, the endoscope was passed under direct vision. Throughout the procedure, the patient's blood pressure, pulse, and oxygen saturations were monitored continuously. The Endoscope was introduced through the mouth, and advanced to the second part of duodenum. The upper GI endoscopy was accomplished without difficulty. The patient tolerated the procedure well. Scope In: 10:54:02 AM Scope Out: 11:12:33 AM Total Procedure Duration Time 0 hours 18 minutes 31 seconds Findings: One 2 mm semi-sessile polyp with no bleeding was found in the second portion of the duodenum. Biopsies were taken with a cold forceps for histology. Estimated blood loss was minimal. Localized mildly erythematous mucosa without bleeding was found in the gastric antrum. Biopsies were taken with a cold forceps for histology. Estimated blood loss was minimal. The Z-line was regular and was found 38 cm from the incisors. Biopsies were taken with a cold forceps for histology. Estimated blood loss was minimal. A small hiatal hernia was present. No biopsies or other specimens were collected for this exam. A few 5 mm mucosal nodules with a localized distribution were found in the lower third of the esophagus. Biopsies were taken with a cold forceps for histology. Estimated blood loss was minimal. Impression: - One duodenal polyp. Biopsied. - Erythematous mucosa in the antrum. Biopsied. - Z-line regular, 38 cm from the incisors. Biopsied. - Small hiatal hernia. No specimens collected. - Mucosal nodule found in the esophagus. Biopsied. Recommendation: - Discharge patient to home (via wheelchair). - Resume previous diet today. - Continue present medications. - Await pathology results. - Telephone my office for pathology results in 1 week. Procedure Code(s): --- Professional --- 95415, Esophagogastroduodenoscopy, flexible, transoral; with biopsy, single or multiple Diagnosis Code(s): --- Professional --- K31.7, Polyp of stomach and duodenum K31.89, Other diseases of stomach and duodenum K44.9, Diaphragmatic hernia without obstruction or gangrene K22.89, Other specified disease of esophagus Z13.810, Encounter for screening for upper gastrointestinal disorder K21.9, Gastro-esophageal reflux disease without esophagitis CPT copyright 2021 [employer]. All rights reserved. The codes documented in this report are preliminary and upon coconut candy maker review may be revised to meet current compliance requirements. Tyrell Krishnamurthy MD 05/05/2023 11:47:22 AM This report has been signed electronically. Number of Addenda: 0 Note Initiated On: 05/05/2023 10:41 AM
--- NOTE | 2023-05-05 11:48 | OP.CCLET_ITS ---
05/05/2023 [facility] Re : Upper GI endoscopy procedure for [facility] This procedure was performed on Friday, May 05, 2023. My impressions and recommendations are as follows: Impressions : - One duodenal polyp. Biopsied. - Erythematous mucosa in the antrum. Biopsied. - Z-line regular, 38 cm from the incisors. Biopsied. - Small hiatal hernia. No specimens collected. - Mucosal nodule found in the esophagus. Biopsied. Recommendations : - Discharge patient to home (via wheelchair). - Resume previous diet today. - Continue present medications. - Await pathology results. - Telephone my office for pathology results in 1 week. My findings are described in the full procedure note, which is enclosed. If I can be of further assistance, please feel free to contact me at Doctor phone number(s): , Work: . Sincerely, Tyrell Krishnamurthy MD 05/05/2023 11:47:22 AM This report has been signed electronically.
--- NOTE | 2023-05-05 11:54 | OP.COLON_ITS ---
Patient Name: Mele Esparza Procedure Date: 05/05/2023 11:14 AM Date of : 1950 Age: 72 Procedure: Colonoscopy Indications: Surveillance: Personal history of adenomatous polyps on last colonoscopy 3 years ago Providers: Tyrell Krishnamurthy MD Referring MD: [facility] Medicines: See the Anesthesia note for documentation of the administered medications Patient Profile: Refer to note in patient chart for documentation of history and physical. Last Colonoscopy: 3 years ago. Complications: No immediate complications. Estimated blood loss: Minimal. Procedure: Pre-Anesthesia Assessment: - The heart rate, respiratory rate, oxygen saturations, blood pressure, adequacy of pulmonary ventilation, and response to care were monitored throughout the procedure. - The heart rate, respiratory rate, oxygen saturations, blood pressure, adequacy of pulmonary ventilation, and response to care were monitored throughout the procedure. After I obtained informed consent, the scope was passed under direct vision. Throughout the procedure, the patient's blood pressure, pulse, and oxygen saturations were monitored continuously. The pediatric colonoscope was introduced through the anus and advanced to the cecum, identified by transillumination. The colonoscopy was somewhat difficult. Successful completion of the procedure was aided by lavage. The patient tolerated the procedure well. Scope In: 11:15:07 AM Scope Withdrawal Time 0 hours 12 minutes 31 seconds Scope Out: 11:39:27 AM Total Procedure Duration Time 0 hours 24 minutes 20 seconds Findings: The digital rectal exam was normal. A few small-mouthed diverticula were found in the sigmoid colon. No biopsies or other specimens were collected for this exam. A 4 mm polyp was found in the cecum. The polyp was sessile. Biopsies were taken with a cold forceps for histology. Estimated blood loss was minimal. There was a small lipoma, 15 mm in diameter, in the cecum. No biopsies or other specimens were collected for this exam. A 3 mm polyp was found in the sigmoid colon. The polyp was semi-sessile. Biopsies were taken with a cold forceps for histology. A localized area of mildly skin tag on retroflexion mucosa was found in the rectum. No biopsies or other specimens were collected for this exam. Impression: - Diverticulosis in the sigmoid colon. No specimens collected. - One 4 mm polyp in the cecum. Biopsied. - Small lipoma in the cecum. No specimens collected. - One 3 mm polyp in the sigmoid colon. Biopsied. - Skin tag on retroflexion mucosa in the rectum. No specimens collected. Recommendation: - Discharge patient to home (via wheelchair). - Resume previous diet today. - Continue present medications. - Await pathology results. - Repeat colonoscopy date to be determined after pending pathology results are reviewed for surveillance based on pathology results. - Telephone my office for pathology results in 1 week. Procedure Code(s): --- Professional --- 90549, Colonoscopy, flexible; with biopsy, single or multiple Diagnosis Code(s): --- Professional --- Z86.010, Personal history of colonic polyps D12.0, Benign neoplasm of cecum D12.5, Benign neoplasm of sigmoid colon D17.5, Benign lipomatous neoplasm of intra-abdominal organs K57.30, Diverticulosis of large intestine without perforation or abscess without bleeding CPT copyright 2021 [employer]. All rights reserved. The codes documented in this report are preliminary and upon deputy sheriff civil division review may be revised to meet current compliance requirements. Tyrell Krishnamurthy MD 05/05/2023 11:54:05 AM This report has been signed electronically. Number of Addenda: 0 Note Initiated On: 05/05/2023 11:14 AM
--- NOTE | 2023-05-05 11:54 | OP.CCLET_ITS ---
05/05/2023 [facility] Re : Colonoscopy procedure for [facility] This procedure was performed on Friday, May 05, 2023. My impressions and recommendations are as follows: Impressions : - Diverticulosis in the sigmoid colon. No specimens collected. - One 4 mm polyp in the cecum. Biopsied. - Small lipoma in the cecum. No specimens collected. - One 3 mm polyp in the sigmoid colon. Biopsied. - Skin tag on retroflexion mucosa in the rectum. No specimens collected. Recommendations : - Discharge patient to home (via wheelchair). - Resume previous diet today. - Continue present medications. - Await pathology results. - Repeat colonoscopy date to be determined after pending pathology results are reviewed for surveillance based on pathology results. - Telephone my office for pathology results in 1 week. My findings are described in the full procedure note, which is enclosed. If I can be of further assistance, please feel free to contact me at Doctor phone number(s): , Work: . Sincerely, Tyrell Krishnamurthy MD 05/05/2023 11:54:05 AM This report has been signed electronically.
== END 2023-05-05 12:44 | disposition home or self-care (01) ==
LOC: EN 07:35 → AC 07:37
PROVIDERS: Visit Provider Surgery
PROC: 0DJD8ZZ Inspection of Lower Intestinal Tract, Via Natural or Artificial Opening Endoscopic (ICD-10-PCS; CPT 45378; principal; 2023-05-05 08:55)
DX: Z12.11 Encounter for screening for malignant neoplasm of colon (principal); J44.9 Chronic obstructive pulmonary disease, unspecified; E11.9 Type 2 diabetes mellitus without complications; K44.9 Diaphragmatic hernia without obstruction or gangrene; I10 Essential (primary) hypertension; K31.7 Polyp of stomach and duodenum; D13.2 Benign neoplasm of duodenum; D12.0 Benign neoplasm of cecum; F17.210 Nicotine dependence, cigarettes, uncomplicated; K57.30 Diverticulosis of large intestine without perforation or abscess without bleeding; E78.00 Pure hypercholesterolemia, unspecified; K31.89 Other diseases of stomach and duodenum; K29.50 Unspecified chronic gastritis without bleeding; K64.4 Residual hemorrhoidal skin tags; K21.00 Gastro-esophageal reflux disease with esophagitis, without bleeding; Z79.899 Other long term (current) drug therapy; Z79.84 Long term (current) use of oral hypoglycemic drugs; Z86.010 Personal history of colon polyps
CPT/HCPCS: 45380; 43239; 82962; 88305; 88313; 88342; 94640; J7120; J2405

== ENCOUNTER 2024-01-25 06:49 | Day surgery (SDC) | payer OTHER, SELFPAY ==
--- NOTE | 2024-01-25 | GASB_PTH ---
PATIENT: YULIYA GALARZA LOC: [facility] U#:[id number] AGE/SX: 73/M ROOM: RE01/25/[address]: Dr. Tyrell Krishnamurthy MD : 1950 BED: DIS: 01/25/2024 SPEC #: [id number] RECD: 01/25/24 13:24 STATUS: DEWAYNE SUSAN #: [id number] SERENA: 01/25/24 00:[address]: Tyrell Krishnamurthy DEPT: SURGICAL PATHOLOGY RECD BY: Remi Echols ENTERED: 01/25/24 13:25 SP TYPE: Gastric Bx OTHR DR: [facility] Tissues: A - Duodenum, NOS B - Gastric mucous membrane C - Esophageal mucous membrane Procedures: Special Stain Group I Surgery Specimen Level IV Alcian Blue/PAS (control) HEADER OPERATION: EGD biopsy PRE-OP DIAGNOSIS: Adenomatous duodenal polyp TISSUE SUBMITTED: A- Duodenal bulb biopsy, B- Gastroesophageal junction biopsy, C- Mid esophagus biopsy MICROSCOPIC DIAGNOSIS A. Duodenal bulb, biopsy: No pathologic change. B. Gastroesophageal junction, biopsy: Mild chronic inflammation. Focal changes of reflux. No evidence of goblet cell metaplasia. See comment. C. Mid esophagus, biopsy: Recent intramucosal hemorrhage. No evidence of inflammation. BENJAMIN/ 01/26/2024 COMMENT B. Alcian blue/PAS stain with matched control supports the above diagnosis. Glandular mucosa is not represented in the biopsy. MICROSCOPIC DESCRIPTION Slides are reviewed. GROSS DESCRIPTION A. Received in fixative is one container labeled with the patient's name and designated Duodenal bulb biopsy. The specimen consists of one irregular fragment of light paredes soft tissue that measures 0.5 x 0.5 x 0.1 cm. The specimen is totally submitted in one cassette. B. Received in fixative is one container labeled with the patient's name and designated GE junction biopsy. The specimen consists of one irregular fragment of light paredes soft tissue that measures 0.5 x 0.5 x 0.1 cm. The specimen is totally submitted in one cassette. C. Received in fixative is one container labeled with the patient's name and designated Mid esophageal biopsy. The specimen consists of one irregular fragment of light paredes soft tissue that measures 0.6 x 0.2 x 0.1 cm. The specimen is totally submitted in one cassette. BENJAMIN/ 01/25/2024 TC:3 CPT:12054q6,48002
[2024-01-25 07:15] VITALS: BP 150/64; PULSE 81; RESP 16; TEMP 36.6; O2SAT 97; BMI 20.5
[2024-01-25] MEDS: Lactated Ringers 1,000 ML 15 ML IV (07:26)
--- NOTE | 2024-01-25 07:41 | PCM.HP.BLA ---
History and Physical Date of Service: 12/21/23 MR#: [id number] Acct: [id number] Name: YULIYA GALARZA Rep #: [id number] : 1950 Provider: Dr. Tyrell Krishnamurthy MD Age/Sex: 73/M Location: [facility] Status: Signed Intake Vital Signs 05/05/2307:57 12/21/2407:18 Height 5 ft 7 in 5 ft 7 in Weight: 135 lb 8 oz BMI 21.2 BP 128/75 H Blood Pressure Location Rt brachial Position Sitting Respiration 18 Pulse 68 Pulse Source Monitor Temp 97.6 F L Temp Source Temporal Pulse Oximetry (%) 96 Oxygen Delivery Method room air Intake Visit Reasons: 6M REPEAT EGD Chief Complaint: 6 month repeat EGD Is patient in pain?: No Allergies No Known Allergies Allergy (Verified 12/21/23 08:19) Medications albuterol sulfate 90 mcg/actuation aerosol inhaler (Proventil HFA) 6.7 g IH 4X/DAY PRN Sob &/Or Wheezing 01/04/17 [History Confirmed 12/21/23] atorvastatin 10 mg tablet 10 mg PO QHS cholesterol 01/04/17 [History Confirmed 12/21/23] budesonide-formoterol HFA 160 mcg-4.5 mcg/actuation aerosol inhaler (Symbicort) 6 g IH BID breathing 01/04/17 [History Confirmed 12/21/23] lisinopril 5 mg tablet 5 mg PO DAILY blood pressure 01/04/17 [History Confirmed 12/21/23] metformin 500 mg 24 hr tablet,extended release (gastric retention) 500 mg PO BID diabetes 01/04/17 [History Confirmed 12/21/23] blood sugar diagnostic (Accu-Chek Guide test strips) 12/21/23 [History Confirmed 12/21/23] lancets 12/21/23 [History Confirmed 12/21/23] ropinirole 1 mg tablet 1 mg PO DAILY 12/21/23 [History Confirmed 12/21/23] COUNT INCLUDES THE [facility] Medical History Ambulates with cane Arthritis Back pain Blackout COPD (chronic obstructive pulmonary disease) Diabetes Dietary restriction Difficulty swallowing Easy bruising Gastric reflux History of edema History of pain when walking History of stress test History of ulceration Hypercholesterolemia Hypertension Leg cramps Restless legs Shortness of breath on exertion Smoker Wears dentures Wears glasses Wears hearing aid Surgical History History of back surgery History of carpal tunnel surgery of left wrist History of carpal tunnel surgery of right wrist Hx of appendectomy Hx of arthroscopy of shoulder Social History (Updated 12/21/23 @ 08:18 by Barbara Zhu LPN) Smoking Status: Current every day smoker tobacco type: cigarettes alcohol intake: never substance use type: does not use HPI HPI HPI: Patient is a 73-year-old male who is known to me from a history of a prior EGD and colonoscopy on 05/05/2023. During the case he is found to have a number of foregut polyps including a duodenal tubular adenoma with gastric metaplasia. Based on this finding he was recommended 6-month follow-up endoscopy and he presents today for that purpose. He shares with me today that he has overall been in a reasonable state of health, however he reports a specific episode of difficulty swallowing. This occurred 2 days ago as he was trying to eat [employer]. He states that he had to force his way through the last piece. He further describes feeling as if the chicken and becomes stuck in his esophagus and was associated with some shortness of breath as well. He states he tried to put his arms over his head for relief but this brought him no relief. Thus he ended up throwing up in a bag and was able to dislodge the chicken. He denies any prior experience like this. He does confess that he has dentures and that sometimes it is difficult to get it smaller when describing chewing certain foods. Mr. Galarza denies any history of asthma or allergies. He reports a history of an EGD a few years ago at the [facility] in [place] where they removed some stuff during EGD, but he is unable to verify whether there was any concern for eosinophilic esophagitis or similar pathology. He denies any present experience of reflux or heartburn. He denies any bloody vomitus. ROS General General: Yes fatigue; No weight change, appetite, colon cancer, breast cancer or weakness HEENT HEENT: Yes difficulty swallowing; No eye injury, eye surgery, swollen glands or hoarseness Endo Endocrine: Yes diabetes mellitus; No thyroid disease, thyroid cancer, Hair loss, heat intolerance or cold intolerance Skin Skin: No rash or changing moles Breast Breast: No left breast lump, right breast lump, nipple discharge, breast pain, abnormal mammogram, abnormal US or breast enlargement Musc Musculoskeletal: No back problems, arthritis, rheumatoid arthritis, gout or joint pain Cardio Cardiovascular: No murmur, pacemaker, heart disease, atrial fibrillation, high blood pressure, heart attack, heart stent, palpitations, shortness of breat with exertion or chest pain Psych Psychiatric: No depression, anxiety or hearing voices Resp Respiratory: No shortness of breath, No sleep apnea, No cough, No COPD, No asthma, No emphysema and No wheezing Gastro Gastrointestinal: No abdominal pain, Yes nausea or vomiting, Yes diarrhea, No constipation, No blood in stool, No acid reflux, No hemorrhoids, No ulcers, No gallbladder problem and No black,tarry stools Marco Hematologic: No blood thinners, No blood disorders, No bleeding, No anemia and No blood clots Neuro Neurologic: No system reviewed and no additional complaints, except as documented, No as per HPI, No abnormal gait, No abnormal hearing, No abnormal movements, No abnormal speech, No behavioral changes, No burning sensations, No confusion, No convulsions, No disequilibrium, No dizziness, No localized weakness, No frequent falls, No headache(s), No lack of coordination, No loss of vision, No memory loss, No numbness, No other visual disturbances, No radicular pain, No restless legs, No sensory deficit, No syncope, No tingling, No tremor(s), No weakness and No other Exam Const General: cooperative Orientation: alert Resp Effort & Inspection: normal respiratory effort GI Other: No scars, mild tenderness with palpation of the epigastrium Assessment and Plan Assessment and Plan (1) Adenomatous duodenal polyp: Status: Acute Comment: Patient is a 73-year-old male with a 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 Given this histologic diagnosis I recommended 6-month follow-up EGD. Patient overall presents with a stable medical history but does report a recent experience of dysphagia. After careful listening of the story it does appear probable that patient did not fully masticate his meal before trying to swallow. He confesses that he was just trying to eat it hot. Tried to emphasize to him the importance of swallowing only after thorough chewing and to try to cut his food into smaller pieces before even begins the mastication process given his use of dentures. In addition to this counselor supervisor I recommended we consider a mucosal biopsy at the time of his updated EGD to assess for eosinophilia. He expressed an understanding and willingness to proceed as described. Plan: Repeat EGD under local [facility]. Patient repeatedly counseled that he would require a city driver or a family member/friend to accompany him on hospital transportation following sedation. Patient states that he will look into making these arrangements happen. Orders: Orders EGD 01/25/24 I have examined the patient and the H&P has been reviewed. There are no clinical changes since date of exam. Patient shares that he is ready for the procedure. He denies any further choking episodes. I reviewed plans to investigate his first and second portion of his duodenum carefully given his history of a tubular adenoma in that location and advised him against any postprocedural use of NSAIDs or aspirin. He expresses understanding. I have confirmed reliable transportation home. Will now proceed to endoscopy suite for EGD as planned.
[2024-01-25 07:47] LABS: Bedside Glucose 172 mg/dL (74-106)
[2024-01-25 09:20] VITALS: BP 150/64; BP 91/51; PULSE 69; RESP 16; TEMP 36.2; O2SAT 94
[2024-01-25 09:25] VITALS: BP 150/64; BP 97/54; PULSE 68; RESP 16; O2SAT 95
--- NOTE | 2024-01-25 09:25 | OP.CCLET_ITS ---
01/25/2024 [facility] Re : Upper GI endoscopy procedure for [facility] This procedure was performed on January. My impressions and recommendations are as follows: Impressions : - Normal first portion of the duodenum and second portion of the duodenum. No specimens collected. - Nodular mucosa in the duodenal bulb. Biopsied. - Z-line irregular, 38 cm from the incisors. Biopsied. - Small hiatal hernia. - Mucosal nodule found in the esophagus. Biopsied. - Grade II esophageal varices. No specimens collected. Recommendations : - Discharge patient to home (via wheelchair). - Resume previous diet today. - No aspirin, ibuprofen, naproxen, or other non-steroidal anti-inflammatory drugs for 2 days after biopsy. - Await pathology results. - Telephone my office for pathology results in 1 week. My findings are described in the full procedure note, which is enclosed. If I can be of further assistance, please feel free to contact me at Doctor phone number(s): , Work: . Sincerely, Tyrell Krishnamurthy MD 01/25/2024 9:24:48 AM This report has been signed electronically.
--- NOTE | 2024-01-25 09:25 | OP.EGD_ITS ---
Patient Name: Mele Esparza Procedure Date: 01/25/2024 8:39 AM Date of : 1950 Age: 73 Procedure: Upper GI endoscopy Indications: Surveillance procedure, Personal history of upper GI endoscopy, tubular adenoma of duodenum, OTHER Providers: Tyrell Krishnamurthy MD Referring MD: [facility] Medicines: See the Anesthesia note for documentation of the administered medications Patient Profile: Refer to note in patient chart for documentation of history and physical. Complications: No immediate complications. Estimated blood loss: Minimal. Procedure: Pre-Anesthesia Assessment: - The heart rate, respiratory rate, oxygen saturations, blood pressure, adequacy of pulmonary ventilation, and response to care were monitored throughout the procedure. After obtaining informed consent, the endoscope was passed under direct vision. Throughout the procedure, the patient's blood pressure, pulse, and oxygen saturations were monitored continuously. The gastroscope was introduced through the mouth, and advanced to the second part of duodenum. The upper GI endoscopy was accomplished without difficulty. The patient tolerated the procedure well. Scope In: 8:57:51 AM Scope Out: 9:13:39 AM Total Procedure Duration Time 0 hours 15 minutes 48 seconds Findings: The first portion of the duodenum and second portion of the duodenum were normal. No biopsies or other specimens were collected for this exam. Estimated blood loss: none. Localized nodular mucosa was found in the duodenal bulb. Biopsies were taken with a cold forceps for histology. Estimated blood loss was minimal. The Z-line was irregular and was found 38 cm from the incisors. Biopsies were taken with a cold forceps for histology. Estimated blood loss was minimal. A small hiatal hernia was present. A few 5 to 7 mm mucosal nodules with a localized distribution were found in the lower third of the esophagus, 37 cm from the incisors. The nodules were Jody classification IIa (superficial, elevated). Biopsies were taken with a cold forceps for histology. Estimated blood loss was minimal. Grade II varices were found in the middle third of the esophagus. No biopsies or other specimens were collected for this exam. Impression: - Normal first portion of the duodenum and second portion of the duodenum. No specimens collected. - Nodular mucosa in the duodenal bulb. Biopsied. - Z-line irregular, 38 cm from the incisors. Biopsied. - Small hiatal hernia. - Mucosal nodule found in the esophagus. Biopsied. - Grade II esophageal varices. No specimens collected. Recommendation: - Discharge patient to home (via wheelchair). - Resume previous diet today. - No aspirin, ibuprofen, naproxen, or other non-steroidal anti-inflammatory drugs for 2 days after biopsy. - Await pathology results. - Telephone my office for pathology results in 1 week. Procedure Code(s): --- Professional --- 25402, Esophagogastroduodenoscopy, flexible, transoral; with biopsy, single or multiple Diagnosis Code(s): --- Professional --- K31.89, Other diseases of stomach and duodenum K22.89, Other specified disease of esophagus K44.9, Diaphragmatic hernia without obstruction or gangrene I85.00, Esophageal varices without bleeding Z98.890, Other specified postprocedural states CPT copyright 2021 [employer]. All rights reserved. The codes documented in this report are preliminary and upon pipeline superintendent division review may be revised to meet current compliance requirements. Tyrell Krishnamurthy MD 01/25/2024 9:24:48 AM This report has been signed electronically. Number of Addenda: 0 Note Initiated On: 01/25/2024 8:39 AM
[2024-01-25 09:30] VITALS: BP 102/59; BP 150/64; PULSE 68; RESP 16; O2SAT 97
[2024-01-25 09:35] VITALS: BP 120/68; BP 150/64; PULSE 67; RESP 16; TEMP 36.2; O2SAT 95
[2024-01-25 10:02] VITALS: BP 150/64
== END 2024-01-25 10:08 | disposition home or self-care (01) ==
LOC: EN 06:49 → AC 06:52
PROVIDERS: Visit Provider Surgery
PROC: 0DJ08ZZ Inspection of Upper Intestinal Tract, Via Natural or Artificial Opening Endoscopic (ICD-10-PCS; CPT 43235; principal; 2024-01-25 08:10)
DX: K21.00 Gastro-esophageal reflux disease with esophagitis, without bleeding (principal); I85.00 Esophageal varices without bleeding; J44.9 Chronic obstructive pulmonary disease, unspecified; E11.9 Type 2 diabetes mellitus without complications; K44.9 Diaphragmatic hernia without obstruction or gangrene; I10 Essential (primary) hypertension; E78.00 Pure hypercholesterolemia, unspecified; F17.210 Nicotine dependence, cigarettes, uncomplicated; Z87.19 Personal history of other diseases of the digestive system; K22.89 Other specified disease of esophagus; Z79.82 Long term (current) use of aspirin; Z79.899 Other long term (current) drug therapy; Z79.84 Long term (current) use of oral hypoglycemic drugs
CPT/HCPCS: 43239; 82962; 88305; 88312; J7120; J2405